=== PATIENT | female | born 1960 | race Two or more races ===

== ENCOUNTER → 2018-03-03 | Outpatient (CLI) | payer SELFPAY ==
--- NOTE | 2018-03-03 10:12 | MM ---
Reason for exam: screening (asymptomatic). Last mammogram was performed 4 years and 1 month ago. History: Patient is postmenopausal. Family history of premenopausal breast cancer in mother. Physical Findings: A clinical breast exam by your physician is recommended on an annual basis and results should be correlated with mammographic findings. MG Screening Mammo w CAD Bilateral CC and MLO view(s) were taken. Prior study comparison: January 24, 2014, bilateral MG screening mammo w CAD. November 06, 2012, bilateral digital screening mammo w/CAD. The breast tissue is heterogeneously dense. This may lower the sensitivity of mammography. Benign calcifications in the left breast. There is chronic nodularity in the left breast. ASSESSMENT: Benign, BI-RAD 2 RECOMMENDATION: Routine screening mammogram of both breasts in 1 year.
== END | disposition home or self-care (01) ==
LOC: RADMAMWWP 07:05
PROVIDERS: ATTEND Internal Medicine
DX: Z12.31 Encounter for screening mammogram for malignant neoplasm of breast (principal)
CPT/HCPCS: 77067

== ENCOUNTER 2021-06-07 11:15 | Inpatient (IN) | payer OTHER ==
[2021-06-07] MEDS ORDERED: SODIUM CHLORIDE 0.9% 500 ML 500 ML IV STA (11:45)
--- NOTE | 2021-06-07 11:48 | ED ---
General Adult HPI - General Chief complaint: Chest Pain Stated complaint: Chest pain/SOB Time Seen by Provider: 06/07/21 11:32 Source: patient, RN notes reviewed, old records reviewed Mode of arrival: ambulatory Limitations: language barrier - History of Present Illness Initial comments: 61-year-old female presenting with cough, dyspnea, chest pain. History is obtained from the daughter who is at bedside. The patient does not speak Indonesian. She has not been vaccinated against coronavirus. She's had a nonproductive cough for the past several days. No vomiting or diarrhea. History is limited. - Related Data Allergies Allergy/AdvReac Type Severity Reaction Status Date / Time No Known Allergies Allergy Verified 06/07/21 11:30 Review of Systems ROS Statement: Those systems with pertinent positive or pertinent negative responses have been documented in the HPI. ROS Other: All systems not noted in ROS Statement are negative. Past Medical History Past Medical History: Diabetes Mellitus, Hyperlipidemia History of Any Multi-Drug Resistant Organisms: None Reported Past Surgical History: Tubal Ligation Past Psychological History: No Psychological Hx Reported Smoking Status: Never smoker Past Alcohol Use History: None Reported Past Drug Use History: None Reported General Exam Limitations: no limitations General appearance: alert, in no apparent distress Head exam: Present: atraumatic, normocephalic Eye exam: Present: normal appearance, PERRL ENT exam: Present: normal exam Neck exam: Present: normal inspection. Absent: tenderness, meningismus Respiratory exam: Present: rales. Absent: respiratory distress, wheezes Cardiovascular Exam: Present: regular rate, normal rhythm GI/Abdominal exam: Present: soft. Absent: distended, tenderness, guarding, rebound Extremities exam: Present: normal inspection, normal capillary refill. Absent: pedal edema Neurological exam: Present: alert, oriented X3, CN II-XII intact. Absent: motor sensory deficit Psychiatric exam: Present: normal affect, normal mood Skin exam: Present: warm, dry, intact. Absent: cyanosis, diaphoretic Course Vital Signs 06/07/21 06/07/21 06/07/21 11:24 12:44 12:47 Temperature 99.0 F Pulse Rate 113 H 102 H Respiratory 19 24 18 Rate Blood Pressure 126/78 124/69 O2 Sat by Pulse 86 L 93 L Oximetry - Reevaluation(s) Reevaluation #1: 06/07/21 13:40 Patient does test positive for coronavirus. Very mild respiratory distress. She is given monoclonal antibodies as well as steroids in the emergency depart ment. EKG Findings - EKG Comments: EKG Findings:: Sinus tachycardia, rate of 107, OR interval 122, QRS duration 82, QTC 488, no ST segment elevation. Medical Decision Making - Medical Decision Making 61-year-old female with a burning chest pain. Patient does not speak Indonesian, h istory is obtained from the daughter who is at bedside. Patient is mildly hypoxic upon arrival. She does test positive for coronavirus. Chest x-ray showing minimal bilateral pneumonia. She has a leukocytosis, elevated hemoglobin, negative d-dimer. Blood sugar is elevated 359. She started on IV fluids. She's given Decadron as well. Her blood sugar will require monitoring. She will be placed in observation for hydration and reevaluation. Case discussed with Dr. Miller who will admit. - Lab Data Result diagrams: 06/07/21 12:08 06/07/21 12:08 Lab Results 06/07/21 06/07/21 06/07/21 Range/Units 12:08 12:08 12:08 WBC 16.4 H (3.8-10.6) k/uL RBC 5.82 H (3.80-5.40) m/uL Hgb 16.8 H (11.4-16.0) gm/dL Hct 51.7 H (34.0-46.0) % MCV 88.8 (80.0-100.0) fL MCH 28.9 (25.0-35.0) pg MCHC 32.6 (31.0-37.0) g/dL RDW 13.1 (11.5-15.5) % Plt Count 383 (150-450) k/uL MPV 8.1 Neutrophils % 88 % Lymphocytes % 7 % Monocytes % 4 % Eosinophils % 0 % Basophils % 0 % Neutrophils # 14.5 H (1.3-7.7) k/uL Lymphocytes # 1.1 (1.0-4.8) k/uL Monocytes # 0.6 (0-1.0) k/uL Eosinophils # 0.0 (0-0.7) k/uL Basophils # 0.1 (0-0.2) k/uL PT 10.9 (9.0-12.0) sec INR 1.0 (<1.2) APTT 19.7 L (22.0-30.0) sec D-Dimer 0.42 (<0.60) mg/L FEU Sodium 134 L (137-145) mmol/L Potassium 4.6 (3.5-5.1) mmol/L Chloride 98 (98-107) mmol/L Carbon Dioxide 13 L (22-30) mmol/L Anion Gap 23 mmol/L BUN 32 H (7-17) mg/dL Creatinine 0.70 (0.52-1.04) mg/dL Est GFR (CKD-EPI)AfAm >90 (>60 ml/min/1.73 sqM) Est GFR (CKD-EPI)NonAf >90 (>60 ml/min/1.73 sqM) Glucose 359 H (74-99) mg/dL Calcium 10.3 H (8.4-10.2) mg/dL Magnesium 2.0 (1.6-2.3) mg/dL Total Bilirubin 0.8 (0.2-1.3) mg/dL AST 18 (14-36) U/L ALT 13 (4-34) U/L Alkaline Phosphatase 85 (38-126) U/L Troponin I (0.000-0.034) ng/mL Total Protein 7.6 (6.3-8.2) g/dL Albumin 4.1 (3.5-5.0) g/dL Lipase 56 (23-300) U/L Coronavirus (PCR) (Not Detectd) 06/07/21 06/07/21 Range/Units 12:08 12:08 WBC (3.8-10.6) k/uL RBC (3.80-5.40) m/uL Hgb (11.4-16.0) gm/dL Hct (34.0-46.0) % MCV (80.0-100.0) fL MCH (25.0-35.0) pg MCHC (31.0-37.0) g/dL RDW (11.5-15.5) % Plt Count (150-450) k/uL MPV Neutrophils % % Lymphocytes % % Monocytes % % Eosinophils % % Basophils % % Neutrophils # (1.3-7.7) k/uL Lymphocytes # (1.0-4.8) k/uL Monocytes # (0-1.0) k/uL Eosinophils # (0-0.7) k/uL Basophils # (0-0.2) k/uL PT (9.0-12.0) sec INR (<1.2) APTT (22.0-30.0) sec D-Dimer (<0.60) mg/L FEU Sodium (137-145) mmol/L Potassium (3.5-5.1) mmol/L Chloride (98-107) mmol/L Carbon Dioxide (22-30) mmol/L Anion Gap mmol/L BUN (7-17) mg/dL Creatinine (0.52-1.04) mg/dL Est GFR (CKD-EPI)AfAm (>60 ml/min/1.73 sqM) Est GFR (CKD-EPI)NonAf (>60 ml/min/1.73 sqM) Glucose (74-99) mg/dL Calcium (8.4-10.2) mg/dL Magnesium (1.6-2.3) mg/dL Total Bilirubin (0.2-1.3) mg/dL AST (14-36) U/L ALT (4-34) U/L Alkaline Phosphatase (38-126) U/L Troponin I <0.012 (0.000-0.034) ng/mL Total Protein (6.3-8.2) g/dL Albumin (3.5-5.0) g/dL Lipase (23-300) U/L Coronavirus (PCR) Detected A (Not Detectd) Disposition Clinical Impression: Chest pain, Dehydration, COVID-19 Disposition: ADMITTED IP TO THIS [facility] Condition: Stable Is patient prescribed a controlled substance at d/c from ED?: No Referrals: Natasha Back MD [Primary Care Provider] - 1-2 days Decision to Admit Reason: Admit from EC Decision Date: 06/07/21 Decision Time: 13:42
[2021-06-07 12:25] LABS: Basophils # (A) 0.1 k/uL (0-0.2); Basophils % (A) 0 %; Eosinophils % (A) 0 %; HCT 51.7 % (34.0-46.0); HGB 16.8 gm/dL (11.4-16.0); Lymphocytes # (A) 1.1 k/uL (1.0-4.8); Lymphocytes % (A) 7 %; MCH 28.9 pg (25.0-35.0); MCHC 32.6 g/dL (31.0-37.0); MCV 88.8 fL (80.0-100.0); Mean Platelet Volume 8.1; Monocytes # (A) 0.6 k/uL (0-1.0); Monocytes % (A) 4 %; Neutrophils # (A) 14.5 k/uL (1.3-7.7); Neutrophils % (A) 88 %; Platelet Count 383 k/uL (150-450); RBC 5.82 m/uL (3.80-5.40); RDW 13.1 % (11.5-15.5); WBC 16.4 k/uL (3.8-10.6)
--- NOTE | 2021-06-07 12:42 | XR ---
EXAMINATION TYPE: XR chest 1V portable DATE OF EXAM: 06/07/2021 COMPARISON: NONE HISTORY: Shortness of breath TECHNIQUE: Single frontal view of the chest is obtained. FINDINGS: There are perihilar and lower lobe areas of infiltrate. Heart size normal. No pneumothorax . Tiny bilateral pleural effusions. Atherosclerotic change aorta. Limited inspiration. IMPRESSION: Bilateral areas of infiltrate correlate for pneumonia.
[2021-06-07] MEDS ORDERED: HYDROmorphone 0.5 MG/0.5 ML SYRINGE IVP STA (12:46)
[2021-06-07 12:49] LABS: Prothrombin Time 10.9 sec (9.0-12.0)
[2021-06-07 12:51] LABS: Sodium 134 mmol/L (137-145)
[2021-06-07 12:52] LABS: ALT 13 U/L (4-34); AST 18 U/L (14-36); African American GFR (CKD) >90 (>60 ml/min/1.73 sqM); Albumin 4.1 g/dL (3.5-5.0); Alkaline Phosphatase 85 U/L (38-126); Anion Gap 23 mmol/L; Blood Urea Nitrogen 32 mg/dL (7-17); Calcium 10.3 mg/dL (8.4-10.2); Carbon Dioxide 13 mmol/L (22-30); Chloride 98 mmol/L (98-107); Glucose 359 mg/dL (74-99); Lipase 56 U/L (23-300); Non-African American GFR(CKD) >90 (>60 ml/min/1.73 sqM); Potassium 4.6 mmol/L (3.5-5.1); Total Bilirubin 0.8 mg/dL (0.2-1.3); Total Protein 7.6 g/dL (6.3-8.2)
[2021-06-07] MEDS ORDERED: DEXAMETHASONE SOD PHOSPHATE 10 MG/ML 1 ML VIAL IV STA (12:52)
[2021-06-07 13:07] LABS: Partial Thromboplastin Time 19.7 sec (22.0-30.0)
[2021-06-07] MEDS ORDERED: SODIUM CHLORIDE 0.9% 50 ML IVPB ONE (13:30)
[2021-06-07] MEDS ORDERED: BAMLANIVIMAB (EUA) 700 MG, ETESEVIMAB (EUA) 1,400 MG in SODIUM CHLORIDE 0.9% 50 ML IVPB ONE (13:30)
[2021-06-07] MEDS ORDERED: ACETAMINOPHEN TAB 325 MG TAB PO PRN (13:38)
[2021-06-07] MEDS ORDERED: NALOXONE 0.4 MG/ML 1 ML VIAL IV PRN (13:38)
[2021-06-07] MEDS ORDERED: HYDROmorphone 0.5 MG/0.5 ML SYRINGE IVP PRN (13:38)
[2021-06-07] MEDS: SODIUM CHLORIDE 0.9% 1,000 ML IV SCH ×2 (13:41→21:14)
[2021-06-07] MEDS ORDERED: SODIUM CHLORIDE 0.9% 500 ML 500 ML IV ONE (13:42)
--- NOTE | 2021-06-07 17:04 | CT ---
EXAMINATION TYPE: CT chest wo con DATE OF EXAM: 06/07/2021 COMPARISON: Chest x-ray earlier today. HISTORY: Suspect covid pneumonia. Shortness of breath, cough. CT DLP: 299.5 mGycm. Automated Exposure Control for Dose Reduction was Utilized. TECHNIQUE: CT scan of the thorax is performed without IV contrast. FINDINGS: LUNGS: Confirmation of bilateral multifocal predominantly peripheral groundglass opacities. Dependent atelectasis in the lower lungs with areas of organizing consolidation. No pleural effusion or pneumo thorax seen. MEDIASTINUM: Lack of IV contrast is noted to limit evaluation for mediastinal and especially hilar ad enopathy. There are no definitive greater than 1 cm mediastinal lymph nodes. No cardiomegaly or per icardial effusion is seen. Small size hiatal hernia. OTHER: No additional significant abnormality is seen. IMPRESSION: Bilateral multifocal groundglass opacities and organizing consolidation consistent with c ovid-19 infection are confirmed.
--- NOTE | 2021-06-07 17:06 | HP ---
HISTORY AND PHYSICAL DATE OF SERVICE: 06/07/2021 CHIEF COMPLAINT: Chest pain and shortness of breath. HISTORY OF PRESENT ILLNESS: This 61-year-old woman with a past medical history of multiple medical problems, including diabetes, hypertension, being followed Dr. Back in the outpatient setting was complaining of some cough, shortness of breath and chest pain for the last 4 days. The patient has not vaccinated and because of increasing difficulties, the patient came to [facility] and was admitted for further evaluation and treatment. The pulse ox found to be 90% on room air and the patient was slight tachycardic. Lab evaluation showed elevated WBC, normal D-dimer, and calcium was 10.3, and Covid 19 was negative. The patient's chest x-ray which I reviewed personally showed possibly minimal early infiltrate. The patient admitted for further evaluation and treatment. There is no history of fever, rigors, chills at this time. The initial pulse ox 86 percent on room air. PAST MEDICAL HISTORY: History of diabetes, hyperlipidemia. MEDICATIONS: Medications are Tylenol, Dilaudid, Narcan. ALLERGIES: None. FAMILY HISTORY: No history of heart disease or strokes in the family. SOCIAL HISTORY: No history of smoking. No history of alcohol intake. REVIEW OF SYSTEMS: ENT: No diminished vision. No diminished hearing. CARDIOVASCULAR as mentioned earlier. RESPIRATORY: As mentioned earlier. GI no nausea or vomiting. : No dysuria. NERVOUS SYSTEM: No numbness or weakness. ALLERGY/IMMUNOLOGY: No asthma or hayfever. MUSCULOSKELETAL: As mentioned earlier. HEMATOLOGY/ONCOLOGY: No history of any anemia. ENDOCRINE: As mentioned earlier. CONSTITUTIONAL: As mentioned earlier. DERMATOLOGY: Negative. RHEUMATOLOGY: Negative. PSYCHIATRIC: As mentioned earlier. PHYSICAL EXAMINATION: Patient is alert, oriented x3. The pulse is 105. Blood pressure is 118/62. Respiration 19. Temperature 99 degrees, pulse ox 98% on room air. HEENT: Conjunctivae normal. Oral mucosa moist. NECK is no jugular venous distention. No carotid bruit. No lymph node enlargement. CARDIOVASCULAR: S1, S2. RESPIRATORY: Breath sounds diminished in the bases. A few scattered rhonchi. ABDOMEN: Soft. No mass palpable. LEGS are no edema. No swelling. NERVOUS SYSTEM: Higher function as mentioned earlier. Moves all 4 limbs. No focal motor or sensory deficits. LYMPHATICS: No lymph nodes palpable in the neck, axillae or groin. SKIN: No ulcer, no rash and no bleeding. JOINTS: No active deforming arthropathy. LAB STUDIES: WBC 16.1, hemoglobin 16.8, sodium 134. ASSESSMENT: 1. Acute Covid 19 infection with acute early bilateral interstitial pneumonia with acute hypoxic respiratory failure. 2. Chest pain for evaluation. Rule out unstable angina, coronary artery disease all secondary to Covid 19. 3. Increased WBC. 4. Increased hemoglobin. 5. Hyponatremia. 6. Diabetes mellitus type 2, uncontrolled with hyperglycemia. 7. History of diabetes type 2. 8. Hyperlipidemia. 9. History of tubal ligation. 10.Obesity with body mass of 31.9. 11.FULL CODE. RECOMMENDATION: This 61-year-old woman who presented with multiple complex medical issues, we will monitor the patient closely, continue the current medications, management and symptomatic treatment. I recommend CT chest without any contrast. The D-dimer is negative. Otherwise, I would also recommend infectious disease evaluation. Pulmonary evaluation. Possible Remdesivir. BAM may also be considered in this patient. The patient is hypoxic apparently. I would also recommend serum ketone to rule out possible diabetic ketoacidosis, UA with micro, serum procalcitonin. Prognosis guarded because of multiple complex medical issues. Further recommendations to follow. A copy of dictation being forwarded to Dr. Back who is the primary care physician. See orders for details. If the blood sugar is elevated, we will initiate IV insulin drip for better control. MMODL / IJN: [id number] / MTDD
[2021-06-07] MEDS: INSULIN ASPART (NovoLOG) 100 UNIT/ML VIAL SQ SCH (17:32)
[2021-06-07] MEDS: ZINC SULFATE 220 MG CAP PO SCH (17:32)
[2021-06-07] MEDS: ENOXAPARIN 40 MG/0.4 ML SYRINGE SQ SCH (17:32)
--- NOTE | 2021-06-07 17:38 | ECHOF ---
Referral Reason:chest pain MEASUREMENTS -------- HEIGHT: 160.0 cm WEIGHT: 81.6 kg BP: 108/72 RVIDd: 2.9 cm (< 3.3) IVSd: 1.2 cm (0.6 - 1.1) LVIDd: 4.0 cm (3.9 - 5.3) LVPWd: 1.1 cm (0.6 - 1.1) IVSs: 1.5 cm LVIDs: 2.4 cm LVPWs: 1.7 cm LA Diam: 3.5 cm (2.7 - 3.8) Ao Diam: 2.9 cm (2.0 - 3.7) AV Cusp: 2.1 cm (1.5 - 2.6) MV EXCURSION: 14.865 mm (> 18.000) MV EF SLOPE: 26 mm/s (70 - 150) EPSS: 0.6 cm MV E Ezekiel: 0.73 m/s MV DecT: 256 ms MV A Ezekiel: 0.92 m/s MV E/A Ratio: 0.80 RAP: 5.00 mmHg RVSP: 16.47 mmHg FINDINGS -------- Sinus rhythm. This was a technically adequate study. The left ventricular size is normal. There is borderline concentric left ventricular hypertrophy. Overall left ventricular systolic function is normal with, an EF between 60 - 65 %. The right ventricle is normal in size. The left atrium is normal in size. The right atrium is normal in size. The aortic valve is trileaflet, and appears structurally normal. No aortic stenosis or regurgitation. There is trace mitral regurgitation. Mild tricuspid regurgitation present. Right ventricular systolic pressure is normal at < 35 mmHg. There is no pulmonic regurgitation present. The aortic root size is normal. Normal inferior vena cava with normal inspiratory collapse consistent with estimated right atrial pre ssure of 5 mmHg. There is no pericardial effusion. CONCLUSIONS -------- 1. The left ventricular size is normal. 2. There is borderline concentric left ventricular hypertrophy. 3. Overall left ventricular systolic function is normal with, an EF between 60 - 65 %. 4. The aortic valve is trileaflet, and appears structurally normal. No aortic stenosis or regurgitati on. 5. There is trace mitral regurgitation. 6. Mild tricuspid regurgitation present. 7. There is no pericardial effusion. FAMILY SERVICES MANAGER: LISSETT Smith
[2021-06-07 18:11] LABS: C Reactive Protein 2.5 mg/dL (<1.0); LDH 547 U/L (313-618)
[2021-06-07 18:45] LABS: Glucose,Whole Blood 438 mg/dL (75-99)
[2021-06-07] MEDS ORDERED: INSULIN REGULAR BOLUS (FROM DRIP BAG) IV ONE (19:06)
[2021-06-07] MEDS: INSULIN REGULAR 100 UNIT in SODIUM CHLORIDE 0.9% 100 ML IV SCH (19:38)
[2021-06-07 20:44] LABS: Glucose,Whole Blood 402 mg/dL (75-99)
[2021-06-07 21:13] LABS: Glucose,Whole Blood 326 mg/dL (75-99)
[2021-06-07 22:04] LABS: Glucose,Whole Blood 262 mg/dL (75-99)
[2021-06-07 22:39] LABS: Glucose,Whole Blood 217 mg/dL (75-99)
[2021-06-08 00:45] LABS: Glucose,Whole Blood 175 mg/dL (75-99)
[2021-06-08 03:00] LABS: Glucose,Whole Blood 167 mg/dL (75-99)
[2021-06-08 03:23] LABS: Appearance,Urine Clear (Clear); Bilirubin,Urine Negative (Negative); Blood,Urine Negative (Negative); Color,Urine Yellow; Glucose,Urine (UA) 4+ (Negative); Leukocyte Esterase,Urine Trace (Negative); Nitrite,Urine Negative (Negative); PH, Urine 5.5 (5.0-8.0); Protein,Urine Trace (Negative); RBC,Urine 1 /hpf (0-5); Specific Gravity,Urine 1.035 (1.001-1.035); Squamous Epithelial Cell,Urine 5 /hpf (0-4); Urobilinogen,Urine <2.0 mg/dL (<2.0); WBC,Urine 7 /hpf (0-5)
[2021-06-08 03:26] LABS: Ketones,Urine 4+ (Negative)
[2021-06-08 04:51] LABS: Glucose,Whole Blood 167 mg/dL (75-99)
[2021-06-08 06:22] LABS: Basophils % (A) 0 %; Eosinophils % (A) 0 %; HCT 44.9 % (34.0-46.0); HGB 14.6 gm/dL (11.4-16.0); Lymphocytes # (A) 1.1 k/uL (1.0-4.8); Lymphocytes % (A) 9 %; MCH 28.8 pg (25.0-35.0); MCHC 32.5 g/dL (31.0-37.0); MCV 88.9 fL (80.0-100.0); Monocytes # (A) 0.5 k/uL (0-1.0); Monocytes % (A) 4 %; Neutrophils # (A) 10.7 k/uL (1.3-7.7); Neutrophils % (A) 86 %; Platelet Count 357 k/uL (150-450); RBC 5.05 m/uL (3.80-5.40); WBC 12.4 k/uL (3.8-10.6)
[2021-06-08 06:32] LABS: ALT 10 U/L (4-34); AST 15 U/L (14-36); African American GFR (CKD) >90 (>60 ml/min/1.73 sqM); Albumin 3.1 g/dL (3.5-5.0); Alkaline Phosphatase 53 U/L (38-126); Anion Gap 6 mmol/L; Blood Urea Nitrogen 25 mg/dL (7-17); Calcium 9.2 mg/dL (8.4-10.2); Carbon Dioxide 25 mmol/L (22-30); Chloride 105 mmol/L (98-107); Glucose 170 mg/dL (74-99); Non-African American GFR(CKD) >90 (>60 ml/min/1.73 sqM); Potassium 4.7 mmol/L (3.5-5.1); Sodium 136 mmol/L (137-145); Total Bilirubin 0.6 mg/dL (0.2-1.3); Total Protein 6.3 g/dL (6.3-8.2)
[2021-06-08 06:34] LABS: Glucose,Whole Blood 157 mg/dL (75-99)
[2021-06-08] MEDS ORDERED: INSULIN ASPART (NovoLOG) 100 UNIT/ML VIAL SQ SCH (07:30)
[2021-06-08] MEDS: INSULIN ASPART (NovoLOG) 100 UNIT/ML VIAL SQ SCH ×3 (07:55→18:20)
[2021-06-08 08:45] LABS: Glucose,Whole Blood 142 mg/dL (75-99)
[2021-06-08] MEDS: ASCORBIC ACID 500 MG TAB PO SCH (08:55)
[2021-06-08] MEDS: CHOLECALCIFEROL 25 MCG (1000 IU) TABLET PO SCH (08:55)
[2021-06-08] MEDS: ENOXAPARIN 40 MG/0.4 ML SYRINGE SQ SCH (08:55)
[2021-06-08] MEDS: ZINC SULFATE 220 MG CAP PO SCH (08:55)
[2021-06-08] MEDS: DEXAMETHASONE SOD PHOSPHATE 10 MG/ML 1 ML VIAL IV SCH (08:56)
[2021-06-08] MEDS: INSULIN REGULAR 100 UNIT in SODIUM CHLORIDE 0.9% 100 ML IV SCH (08:56)
[2021-06-08] MEDS: SODIUM CHLORIDE 0.9% 1,000 ML IV SCH (08:56)
--- NOTE | 2021-06-08 09:30 | P.CONS ---
History of Present Illness - Reason for Consult Consult date: 06/07/21 covid 19 pneumonia Requesting physician: Kandis Miller - Chief Complaint shortness of breath x 4 days - History of Present Illness History of present illness : Patient is 61-year-old female presenting to the ER today for evaluation of cough shortness of breath and chest pain in this patient who is not vaccinated against COVID-19 and the patient did have a nonproductive cough for several days as per ER report daughter is mentioning about 4 days patient on presented to the hospital did have low-grade fever of 99 F patient was hypoxic with O2 sats sats of 86% on room air patient did have elevated white count with a left shift no lymphopenia D-dimer was negative creatinine was normal liver enzymes are normal (normal urine is negative patient did have a chest x-ray bilateral areas of infiltrate correlate for pneumonia given the patient was hypoxic and has abnormal x-ray she was given a monoclonal antibodies in the ER subsequently the patient has been admitted to hospital infectious disease was consulted for further management most information has been obtained from review of the chart and talking to the daughter as the patient herself cannot speak Albanian Review of system: CONSTITUTIONAL: Positive for weakness along with the fever. EYES: No complaint. ENT: No complaint. RESPIRATORY: As per history of present illness. CARDIOVASCULAR: No complaint. GENITOURINARY: No complaint. GASTROINTESTINAL: Diarrhea. MUSCULOSKELETAL: No complaint. INTEGUMENTARY: No complaint. PSYCHOLOGIC: No complaint. ENDOCRINE: No complaint. NEUROLOGIC: No complaint. Past medical history : Reviewed, documented below Past surgical history : Reviewed, documented below Social history: Reviewed, documented below Medications: Reviewed, as documented below EXAMINATION: Vital sigans= Reviewed and documented below GENERAL DESCRIPTION: Middle-aged male lying in bed, no distress. No tachypnea or accessory muscle of respiration use. HEENT: Shows Pallor , no scleral icterus. Oral mucous membrane is dry. NECK: Trachea central, no thyromegaly. LUNGS: Unlabored breathing. Coarse breath sounds bilaterally. No wheeze or crackle. HEART: S1, S2, regular rate and rhythm. ABDOMEN: Soft, no tenderness , guarding or rigidity EXTREMITIES: No edema of feet. SKIN: No rash, no masses palpable. NEUROLOGICAL: The patient is awake, alert, oriented x3, mood and affect normal. LABS AND RADIOLOGY: Reviewed results see below Assessment : Patient presenting to the hospital with chest pain shortness of breath in this patient with evidence of multifocal infiltrate secondary to COV ID-19 pneumonia and hypoxemia and this patient has received a monoclonal antibodies in the ER and seem to be off the oxygen at this point however the patient is currently within the 7-day window of remdesivir as per discussion with the daughter and may be candidate for it clinically no evidence of any secondary bacterial pneumonia Plan: 1-patient will be started on remdesivir 5-day protocol 2-dexamethasone Lovenox zinc and ascorbic acid 3-droplet isolation and respiratory support We will follow on clinical condition and cultures to further adjust medication if needed Thank you for this consultation we will follow the patient along with you Past Medical History Past Medical History: Diabetes Mellitus, Hyperlipidemia History of Any Multi-Drug Resistant Organisms: None Reported Past Surgical History: Tubal Ligation Past Psychological History: No Psychological Hx Reported Smoking Status: Never smoker Past Alcohol Use History: None Reported Past Drug Use History: None Reported Medications and Allergies Home Medications Medication Instructions Recorded Confirmed Type metFORMIN HCL 500 mg PO DAILY 06/07/21 06/07/21 History Allergies Allergy/AdvReac Type Severity Reaction Status Date / Time No Known Allergies Allergy Verified 06/07/21 14:07 Physical Exam Vitals: Vital Signs Temp Pulse Resp BP Pulse Ox 06/07/21 15:36 98 F 99 16 108/72 95 06/07/21 13:50 105 H 19 118/62 90 L 06/07/21 12:47 18 06/07/21 12:44 102 H 24 124/69 93 L 06/07/21 11:24 99.0 F 113 H 19 126/78 86 L Intake and Output 06/07/21 06/07/21 06/07/21 06:59 14:59 22:59 Other: Weight 81.647 kg Results CBC & Chem 7: 06/08/21 05:27 06/08/21 05:27 Labs: Abnormal Lab Results - Last 24 Hours (Table) 06/07/21 06/07/21 06/07/21 Range/Units 12:08 12:08 12:08 WBC 16.4 H (3.8-10.6) k/uL RBC 5.82 H (3.80-5.40) m/uL Hgb 16.8 H (11.4-16.0) gm/dL Hct 51.7 H (34.0-46.0) % Neutrophils # 14.5 H (1.3-7.7) k/uL APTT 19.7 L (22.0-30.0) sec Sodium 134 L (137-145) mmol/L Carbon Dioxide 13 L (22-30) mmol/L BUN 32 H (7-17) mg/dL Glucose 359 H (74-99) mg/dL Calcium 10.3 H (8.4-10.2) mg/dL Coronavirus (PCR) (Not Detectd) 06/07/21 Range/Units 12:08 WBC (3.8-10.6) k/uL RBC (3.80-5.40) m/uL Hgb (11.4-16.0) gm/dL Hct (34.0-46.0) % Neutrophils # (1.3-7.7) k/uL APTT (22.0-30.0) sec Sodium (137-145) mmol/L Carbon Dioxide (22-30) mmol/L BUN (7-17) mg/dL Glucose (74-99) mg/dL Calcium (8.4-10.2) mg/dL Coronavirus (PCR) Detected A (Not Detectd)
--- NOTE | 2021-06-08 09:46 | P.CRDCN ---
History of Present Illness Consult date: 06/08/21 Requesting physician: Kandis Miller Reason for Consult (text): chest pain Chief complaint: Weakness, cough, shortness of breath, chest pain History of present illness: This a pleasant 61-year-old British-speaking female patient with history of hyperlipidemia and diabetes. She speaks very little Ukrainian and most information was obtained from family at the bedside. Presented to the emergency department with complaints of weakness, cough, shortness of breath and burning chest discomfort mostly with deep breathing and coughing. Her has been diagnosed earlier in the week with COVID. Specifically the patient in consultation for chest pain. On admission Coronavirus PCR was noted to be positive. Troponin was negative 1. Blood cell count was elevated at 16,400, d-dimer was normal, BUN 32, creatinine 0.70, glucose is elevated at 359, C- reactive protein elevated at 2.5. Chest x-ray on admission showed bilateral areas of infiltrate correlated for pneumonia. EKG showed sinus tachycardia with a heart rate of 107 and no evidence of acute ischemia. A cardiogram with Doppler study show normal LV systolic function with an ejection fraction between 60-65%, no significant valvular abnormalities and no segmental wall motion abnormalities. Computed tomography scan of the chest showed bilateral multifocal groundglass opacities and organizing consolidation consistent with COVID-19 infection confirmed. Being followed by infectious disease and started on Remdesivir, dexamethasone, Lovenox, zinc, vitamin C. Vital signs have been stable. She is currently requiring 2 L nasal cannula with oxygen saturation of 92-96%. On examination patient is sitting up beside the bed. Continues to complain of chest discomfort with coughing and deep inspiration. Past Medical History Past Medical History: Diabetes Mellitus, Hyperlipidemia History of Any Multi-Drug Resistant Organisms: None Reported Past Surgical History: Tubal Ligation Past Anesthesia/Blood Transfusion Reactions: No Reported Reaction Past Psychological History: No Psychological Hx Reported Smoking Status: Never smoker Past Alcohol Use History: None Reported Past Drug Use History: None Reported Medications and Allergies Home Medications Medication Instructions Recorded Confirmed Type metFORMIN HCL 500 mg PO DAILY 06/07/21 06/07/21 History Allergies Allergy/AdvReac Type Severity Reaction Status Date / Time No Known Allergies Allergy Verified 06/07/21 14:07 Physical Exam Vitals: Vital Signs Temp Pulse Pulse Resp BP BP Pulse Ox 06/08/21 04:00 98.9 F 74 18 108/62 96 06/08/21 02:00 96 18 06/08/21 00:00 99.0 F 96 18 116/59 92 L 06/07/21 20:00 98.4 F 104 H 18 119/69 92 L 06/07/21 18:16 97.9 F 101 H 18 117/65 92 L 06/07/21 17:37 98.9 F 78 20 100/73 94 L 06/07/21 15:36 98 F 99 16 108/72 95 06/07/21 13:50 105 H 19 118/62 90 L 06/07/21 12:47 18 06/07/21 12:44 102 H 24 124/69 93 L 06/07/21 11:24 99.0 F 113 H 19 126/78 86 L Intake and Output 06/07/21 06/08/21 06/08/21 22:59 06:59 14:59 Intake Total 67.700 8.867 20.125 Output Total 400 Balance 67.700 -391.133 20.125 Intake: Intake, IV Titration 67.700 8.867 20.125 Amount Insulin Regular 100 unit 67.700 8.867 20.125 In Sodium Chloride 0.9% 100 ml @ Titrate IV .Q0M [facility] Rx#:[id number] Output: Urine 400 Other: # Voids 1 Weight 81.647 kg 71.5 kg PHYSICAL EXAMINATION: This is a 61-year-old female in no apparent distress at the time of my examination. VITAL SIGNS: Blood pressure 108/62, heart rate 74, respirations 18, temp 98.9F. Patient is 96 % on 2 L via nasal cannula. HEENT: Head is atraumatic, normocephalic. Pupils are equal, round. Sclerae anicteric. Conjunctivae are clear. Mucous membranes of the mouth are moist. Neck is supple. There is no elevated jugular venous pressure. No carotid bruit is heard. CHEST EXAMINATION: Lungs reveal diminished air entry bilaterally. No wheezes rales or rhonchi. Respirations even and nonlabored. HEART EXAMINATION: Heart regular, positive S1 and S2. No S3. No S4. No clicks, rubs or murmurs. ABDOMEN: Soft, nontender. Bowel sounds are heard. No organomegaly noted. EXTREMITIES: 2+ peripheral pulses with no evidence of peripheral edema and no calf tenderness noted. NEUROLOGIC EXAMINATION: Patient is awake, alert and oriented x3. Results 06/08/21 05:27 06/08/21 05:27 Cardiac Enzymes 06/07/21 06/07/21 06/07/21 Range/Units 12:06 12:08 12:08 AST 18 (14-36) U/L Lactate Dehydrogenase 547 (313-618) U/L Troponin I <0.012 (0.000-0.034) ng/mL 06/08/21 Range/Units 05:27 AST 15 (14-36) U/L Lactate Dehydrogenase (313-618) U/L Troponin I (0.000-0.034) ng/mL Coagulation 06/07/21 Range/Units 12:08 PT 10.9 (9.0-12.0) sec APTT 19.7 L (22.0-30.0) sec CBC 06/07/21 06/08/21 Range/Units 12:08 05:27 WBC 16.4 H 12.4 H (3.8-10.6) k/uL RBC 5.82 H 5.05 (3.80-5.40) m/uL Hgb 16.8 H 14.6 (11.4-16.0) gm/dL Hct 51.7 H 44.9 (34.0-46.0) % Plt Count 383 357 (150-450) k/uL Comprehensive Metabolic Panel 06/07/21 06/08/21 Range/Units 12:08 05:27 Sodium 134 L 136 L (137-145) mmol/L Potassium 4.6 4.7 (3.5-5.1) mmol/L Chloride 98 105 (98-107) mmol/L Carbon Dioxide 13 L 25 (22-30) mmol/L BUN 32 H 25 H (7-17) mg/dL Creatinine 0.70 0.53 (0.52-1.04) mg/dL Glucose 359 H 170 H (74-99) mg/dL Calcium 10.3 H 9.2 (8.4-10.2) mg/dL AST 18 15 (14-36) U/L ALT 13 10 (4-34) U/L Alkaline Phosphatase 85 53 (38-126) U/L Total Protein 7.6 6.3 (6.3-8.2) g/dL Albumin 4.1 3.1 L (3.5-5.0) g/dL Current Medications Generic Name Dose Route Start Last Admin Trade Name Freq PRN Reason Stop Dose Admin Acetaminophen 650 mg 06/07/21 13:38 Acetaminophen Tab 325 Mg Tab PO Q6HR PRN Mild Pain or Fever > 100.5 Ascorbic Acid 500 mg 06/08/21 09:00 06/08/21 08:55 Ascorbic Acid 500 Mg Tab PO 500 mg DAILY [facility] Administration Cholecalciferol 25 mcg 06/08/21 09:00 06/08/21 08:55 Cholecalciferol 25 Mcg (1000 Iu) Tablet PO 25 mcg DAILY [facility] Administration Dexamethasone Sodium Phosphate 6 mg 06/08/21 09:00 06/08/21 08:56 Dexamethasone Sod Phosphate 10 Mg/Ml 1 Ml Vial IV 06/17/21 09:01 6 mg DAILY [facility] Administration Enoxaparin Sodium 40 mg 06/07/21 16:15 06/08/21 08:55 Enoxaparin 40 Mg/0.4 Ml Syringe SQ 40 mg Q24HR [facility] Administration Hydromorphone HCl 0.5 mg 06/07/21 13:38 06/08/21 03:32 Hydromorphone 0.5 Mg/0.5 Ml Syringe IVP 0.5 mg Q3HR PRN Administration Moderate Pain Sodium Chloride 1,000 mls @ 75 mls/hr 06/07/21 13:30 06/08/21 08:56 Saline 0.9% IV 75 mls/hr .[id number] [facility] Administration Insulin Human Regular 100 unit 101 mls @ 0 mls/hr 06/07/21 19:15 06/08/21 08:56 / Sodium Chloride IV 2 mls/hr .Q0M [facility] 2 mls/hr Administration Protocol Titrate Insulin Aspart 11 unit 06/07/21 17:30 06/08/21 07:55 Insulin Aspart (Novolog) 100 Unit/Ml Vial 0.13 unit/kg (11 unit) Not Given SQ AC-TID [facility] Naloxone HCl 0.2 mg 06/07/21 13:38 Naloxone 0.4 Mg/Ml 1 Ml Vial IV Q2M PRN Opioid Reversal Zinc Sulfate 220 mg 06/07/21 16:15 06/08/21 08:55 Zinc Sulfate 220 Mg Cap PO 220 mg DAILY [facility] Administration Intake and Output 12/06/08/21 06/08/21 22:59 06:59 14:59 Intake Total 67.700 8.867 20.125 Output Total 400 Balance 67.700 -391.133 20.125 Intake: Intake, IV Titration 67.700 8.867 20.125 Amount Insulin Regular 100 unit 67.700 8.867 20.125 In Sodium Chloride 0.9% 100 ml @ Titrate IV .Q0M [facility] Rx#:[id number] Output: Urine 400 Other: # Voids 1 Weight 81.647 kg 71.5 kg 06/08/21 05:27 06/08/21 05:27 Assessment and Plan Assessment: #1 symptoms of chest pain, atypical, acute coronary event has been ruled out, troponin negative, no ischemic changes noted on EKG and echocardiogram showed normal LV systolic function with no segmental wall motion abnormalities #2 COVID-19 pneumonia #3 dyslipidemia #4 diabetes mellitus Plan: From cardiology's perspective and acute coronary event has been ruled out. Pain is atypical and likely related to underlying COVID-19 pneumonia. No further cardiac workup is warranted at this time. We will plan to see the patient in the office in about 3-4 weeks post discharge to reevaluate her symptoms and likely schedule for stress testing as an outpatient. At this time we will see the patient on an as-needed basis. Please do not hesitate to contact us with questions. 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 Patient was seen and examined.
[2021-06-08] MEDS ORDERED: REMDESIVIR 200 MG in SODIUM CHLORIDE 0.9% 250 ML IVPB ONE (10:00)
--- NOTE | 2021-06-08 11:10 | P.CNPUL ---
History of Present Illness Consult date: 06/08/21 Requesting physician: Kandis Miller Reason for consult: dyspnea, cough, hypoxemia, pneumonia, abnormal CXR/CT Chief complaint: Shortness of breath. History of present illness: Pulmonary consult dated 06/08/2021. This is a 61-year-old female, who doesn't speak any Upper Sorbian. A family member is at the bedside, provides interpretation. This is a 61-year-old female with diabetes and hyperlipidemia. The patient apparently has not been feeling well for about 4 days. Her symptoms included chest burning, low saturations, fever, shortness breath, and weakness. Currently, she is on 2 L nasal cannula. She's getting saline at 75 mL an hour. She is getting insulin 2 units an hour. The patient is not vaccinated. She presented to the emergency room yesterday, with these complaints. She did receive the monoclonal antibody infusion. White count 12.4, hemoglobin, hematocrit, and platelet count are all normal. Sodium 136, potassium 4.7, chlorides 105, CO2 25, anion gap 6, BUN 25, and creatinine 0.53. The patient's chest x-ray show some very minimal bilateral infiltrates, see much more prominently on computed tomography scan. The patient is currently on vitamin C, vitamin D3, zinc, Decadron, and Lovenox. The patient is also receiving REM. Review of Systems REVIEW OF SYSTEMS: CONSTITUTIONAL: Weakness, and fatigue. Fever. NEUROLOGIC: [ Negative.] HEENT: [ Negative.] CARDIAC: [Negative.] PULMONARY: Burning in chest, shortness of breath, low saturations. GI: [Negative.] : [Negative.] RHEUMATOLOGIC: [ Negative.] IMMUNOLOGIC: [ Negative.] ENDOCRINE: [Negative. ] DERMATOLOGIC: [Negative.] Past Medical History Past Medical History: Diabetes Mellitus, Hyperlipidemia History of Any Multi-Drug Resistant Organisms: None Reported Past Surgical History: Tubal Ligation Past Anesthesia/Blood Transfusion Reactions: No Reported Reaction Past Psychological History: No Psychological Hx Reported Smoking Status: Never smoker Past Alcohol Use History: None Reported Past Drug Use History: None Reported Medications and Allergies Home Medications Medication Instructions Recorded Confirmed Type metFORMIN HCL 500 mg PO DAILY 06/07/21 06/07/21 History Allergies Allergy/AdvReac Type Severity Reaction Status Date / Time No Known Allergies Allergy Verified 06/07/21 14:07 Physical Exam Osteopathic Statement: *. No significant issues noted on an osteopathic structural exam other than those noted in the History and Physical/Consult. Vitals: Vital Signs Temp Pulse Pulse Resp BP BP Pulse Ox 06/08/21 08:00 97.6 F 75 18 114/69 94 L 06/08/21 04:00 98.9 F 74 18 108/62 96 06/08/21 02:00 96 18 06/08/21 00:00 99.0 F 96 18 116/59 92 L 06/07/21 20:00 98.4 F 104 H 18 119/69 92 L 06/07/21 18:16 97.9 F 101 H 18 117/65 92 L 06/07/21 17:37 98.9 F 78 20 100/73 94 L 06/07/21 15:36 98 F 99 16 108/72 95 06/07/21 13:50 105 H 19 118/62 90 L 06/07/21 12:47 18 06/07/21 12:44 102 H 24 124/69 93 L 06/07/21 11:24 99.0 F 113 H 19 126/78 86 L Intake and Output 06/07/21 06/08/21 06/08/21 22:59 06:59 14:59 Intake Total 67.700 8.867 310.125 Output Total 400 Balance 67.700 -391.133 310.125 Intake: IV 30 Invasive Line 1 20 Invasive Line 2 10 Intake, IV Titration 67.700 8.867 20.125 Amount Insulin Regular 100 unit 67.700 8.867 20.125 In Sodium Chloride 0.9% 100 ml @ Titrate IV .Q0M [facility] Rx#:[id number] Oral 260 Output: Urine 400 Other: # Voids 1 Weight 81.647 kg 71.5 kg No acute distress, oriented 3. Currently on 2 L. No evidence of conversational dyspnea or use of accessory muscles. HEENT examination is grossly unremarkable. Neck supple. Full range of motion. No adenopathy thyromegaly or neck vein distention. Cardiovascular examination reveals regular rhythm rate. S1-S2 normal. No S3 or S4. No discernible murmur noted. Heart sounds are distant. Heart rate 75 bpm. Lungs reveal scattered bilateral rhonchi. No wheezes or crackles. Breath sounds equal bilaterally. Abdomen soft bowel sounds are heard. No masses or tenderness. Extremities are intact. No cyanosis clubbing or edema. Skin is without rash or lesion. Neurologic examination is brief but nonfocal. Results - Laboratory Findings CBC and BMP: 06/08/21 05:27 06/08/21 05:27 PT/INR, D-dimer PT 10.9 sec (9.0-12.0) 06/07/21 12:08 INR 1.0 (<1.2) 06/07/21 12:08 D-Dimer 0.42 mg/L FEU (<0.60) 06/07/21 12:08 Abnormal lab findings: Abnormal Labs 06/07/21 06/07/21 06/07/21 12:06 12:08 12:08 WBC 16.4 H RBC 5.82 H Hgb 16.8 H Hct 51.7 H Neutrophils # 14.5 H APTT 19.7 L Sodium Carbon Dioxide BUN Glucose POC Glucose (mg/dL) Calcium C-Reactive Protein 2.5 H Albumin Urine Protein Urine Glucose (UA) Urine Ketones Ur Leukocyte Esterase Urine WBC Ur Squamous Epith Cells Coronavirus (PCR) 06/07/21 06/07/21 06/07/21 12:08 12:08 18:34 WBC RBC Hgb Hct Neutrophils # APTT Sodium 134 L Carbon Dioxide 13 L BUN 32 H Glucose 359 H POC Glucose (mg/dL) 438 H Calcium 10.3 H C-Reactive Protein Albumin Urine Protein Urine Glucose (UA) Urine Ketones Ur Leukocyte Esterase Urine WBC Ur Squamous Epith Cells Coronavirus (PCR) Detected A 06/07/21 06/07/21 06/07/21 20:35 21:09 22:03 WBC RBC Hgb Hct Neutrophils # APTT Sodium Carbon Dioxide BUN Glucose POC Glucose (mg/dL) 402 H 326 H 262 H Calcium C-Reactive Protein Albumin Urine Protein Urine Glucose (UA) Urine Ketones Ur Leukocyte Esterase Urine WBC Ur Squamous Epith Cells Coronavirus (PCR) 06/07/21 06/08/21 06/08/21 22:37 00:37 02:44 WBC RBC Hgb Hct Neutrophils # APTT Sodium Carbon Dioxide BUN Glucose POC Glucose (mg/dL) 217 H 175 H Calcium C-Reactive Protein Albumin Urine Protein Trace H Urine Glucose (UA) 4+ H Urine Ketones 4+ H Ur Leukocyte Esterase Trace H Urine WBC 7 H Ur Squamous Epith Cells 5 H Coronavirus (PCR) 06/08/21 06/08/21 06/08/21 02:49 04:49 05:27 WBC 12.4 H RBC Hgb Hct Neutrophils # 10.7 H APTT Sodium Carbon Dioxide BUN Glucose POC Glucose (mg/dL) 167 H 167 H Calcium C-Reactive Protein Albumin Urine Protein Urine Glucose (UA) Urine Ketones Ur Leukocyte Esterase Urine WBC Ur Squamous Epith Cells Coronavirus (PCR) 06/08/21 06/08/21 06/08/21 05:27 06:32 08:34 WBC RBC Hgb Hct Neutrophils # APTT Sodium 136 L Carbon Dioxide BUN 25 H Glucose 170 H POC Glucose (mg/dL) 157 H 142 H Calcium C-Reactive Protein Albumin 3.1 L Urine Protein Urine Glucose (UA) Urine Ketones Ur Leukocyte Esterase Urine WBC Ur Squamous Epith Cells Coronavirus (PCR) - Diagnostic Findings Chest x-ray: image reviewed CT scan - chest: image reviewed Assessment and Plan Assessment: Acute hypoxemic respiratory failure secondary to coronavirus associated pneumonia. History of diabetes mellitus. History of hyperlipidemia. Plan: Plan dated 06/08/2021. The patient is currently on vitamin C, vitamin D3, and zinc. The patient is also appropriately receiving Decadron, and Lovenox. Finally, because her symptoms have been less than 7 days, and because her oxygen requirements are less than 6 L/m, she is a candidate for REM. Additional recommendations and suggestions are forthcoming. We will continue to follow make recommendations where appropriate. Prognosis is guarded. Time with Patient: Greater than 30
[2021-06-08 11:35] LABS: Glucose,Whole Blood 314 mg/dL (75-99)
[2021-06-08 13:39] LABS: Glucose,Whole Blood 269 mg/dL (75-99)
[2021-06-08 15:43] LABS: Glucose,Whole Blood 232 mg/dL (75-99)
[2021-06-08 17:32] LABS: Glucose,Whole Blood 253 mg/dL (75-99)
[2021-06-08 19:16] LABS: Glucose,Whole Blood 298 mg/dL (75-99)
--- NOTE | 2021-06-08 20:31 | PN ---
PROGRESS NOTE DATE OF SERVICE: 06/08/2021 This 61-year-old woman who was admitted with acute COVID-19 infection also had some chest pains. The blood sugar is slightly elevated. Patient also had possibly evidence of diabetic ketosis, present on admission. COVID-19 was positive. The patient is also on multiple medications. Infectious Disease, Pulmonary and Cardiology are following the patient also. Past medical history reviewed. REVIEW OF SYSTEMS: CARDIOVASCULAR SYSTEM: As mentioned earlier. RESPIRATION: As mentioned earlier. GI: As mentioned earlier. : No dysuria. NERVOUS SYSTEM: No numbness, weakness. CURRENT MEDICATIONS: Tylenol, vitamin C, vitamin D3, Decadron, Lovenox. Doses and other medications are reviewed. PHYSICAL EXAMINATION: Patient alert and oriented x3. Pulse 78, blood pressure 118/68, respiration 18, temperature 97.6, pulse ox 97% on 2 L. HEENT: Conjunctivae normal. NECK: No jugular venous distention. CARDIOVASCULAR: S1, S2 muffled. RESPIRATION: Breath sounds diminished at the bases. A few scattered rhonchi and crackles. ABDOMEN: Soft, nontender. LEGS: No edema. No swelling. NERVOUS SYSTEM: No focal deficit. LABS: WBC 12.2, hemoglobin 14.6, and glucose 157. ASSESSMENT: 1. Acute COVID-19 infection with acute early bilateral interstitial pneumonia with acute hypoxic respiratory failure. 2. Chest pain. Myocardial infarction ruled out. Possibly secondary to COVID-19. 3. Increased white count. 4. Diabetes mellitus, type 2, uncontrolled with hyperglycemia. 5. Acute diabetic ketoacidosis, present on admission. 6. Increased hemoglobin. 7. Hyponatremia. 8. Hyperlipidemia. 9. History of tubal ligation. 10.Obesity with body mass index 31.9. 11.FULL CODE. RECOMMENDATIONS AND DISCUSSION: I recommend to continue current medications, continue with the monitoring, symptomatic treatment. The patient has been started on remdesivir. I would also recommend continuing with IV insulin drip and monitor blood sugars closely. Patient is on IV steroids. Repeat labs in the morning. Continue with Lovenox. Continue the rest of the medications. Closely follow with multiple consultants. Chest CT scan was reviewed personally by me. It showed significant bilateral interstitial infiltrates. The prognosis is guarded. Further recommendations to follow. MMODL / IJN: [id number] /
[2021-06-08 21:41] LABS: Glucose,Whole Blood 187 mg/dL (75-99)
[2021-06-08 23:32] LABS: Glucose,Whole Blood 165 mg/dL (75-99)
[2021-06-09 01:30] LABS: Glucose,Whole Blood 151 mg/dL (75-99)
--- NOTE | 2021-06-09 01:31 | PN ---
PROGRESS NOTE DATE OF SERVICE: 06/08/2021 REASON FOR FOLLOW UP: COVID-19 pneumonia. INTERVAL HISTORY: The patient is afebrile. The patient is breathing more comfortably today. The patient denies having any chest pain. Cough intensity is about the same. Cough is dry. No vomiting. No abdominal pain or any worsening diarrhea. PHYSICAL EXAMINATION: Blood pressure 124/72 with a pulse of 90, temperature 98.7. She is 94% on 2 L nasal cannula. General description is a middle-aged female up in the bed in no distress. Respiratory system: Unlabored breathing, coarse breath sounds bilaterally, no wheeze. Heart S1, S2. Regular rate and rhythm. Abdomen soft, no tenderness. LABS: Reviewed. DIAGNOSTIC IMPRESSION AND PLAN: Patient with acute respiratory failure secondary to COVID-19 pneumonia and this patient did have clinical improvement with current treatment protocol of Remdesivir, dexamethasone, Lovenox, zinc and ascorbic acid along with respiratory support and monitor clinical course closely. MMODL / IJN: [id number] /
[2021-06-09 03:20] LABS: Glucose,Whole Blood 138 mg/dL (75-99)
[2021-06-09 05:18] LABS: Glucose,Whole Blood 124 mg/dL (75-99)
[2021-06-09 06:08] LABS: Glucose,Whole Blood 161 mg/dL (75-99)
[2021-06-09] MEDS: REMDESIVIR 100 MG in SODIUM CHLORIDE 0.9% 250 ML IVPB SCH (08:15)
[2021-06-09] MEDS: SODIUM CHLORIDE 0.9% 1,000 ML IV SCH ×2 (08:15→17:41)
[2021-06-09] MEDS: CHOLECALCIFEROL 25 MCG (1000 IU) TABLET PO SCH (08:16)
[2021-06-09] MEDS: DEXAMETHASONE SOD PHOSPHATE 10 MG/ML 1 ML VIAL IV SCH (08:16)
[2021-06-09] MEDS: ENOXAPARIN 40 MG/0.4 ML SYRINGE SQ SCH (08:16)
[2021-06-09] MEDS: ZINC SULFATE 220 MG CAP PO SCH (08:16)
[2021-06-09] MEDS: INSULIN ASPART (NovoLOG) 100 UNIT/ML VIAL SQ SCH ×3 (08:16→17:44)
[2021-06-09] MEDS: ASCORBIC ACID 500 MG TAB PO SCH (08:16)
[2021-06-09 08:22] LABS: Glucose,Whole Blood 139 mg/dL (75-99)
[2021-06-09] MEDS: INSULIN REGULAR 100 UNIT in SODIUM CHLORIDE 0.9% 100 ML IV SCH (08:23)
[2021-06-09 10:12] LABS: Glucose,Whole Blood 254 mg/dL (75-99)
[2021-06-09 12:06] LABS: Glucose,Whole Blood 220 mg/dL (75-99)
[2021-06-09 14:05] LABS: Glucose,Whole Blood 311 mg/dL (75-99)
--- NOTE | 2021-06-09 14:28 | P.PN ---
Subjective Progress Note Date: 06/09/21 Principal diagnosis: Respiratory failure. Pulmonary consult dated 06/08/2021. This is a 61-year-old female, who doesn't speak any Cymro. A family member is at the bedside, provides interpretation. This is a 61-year-old female with diabetes and hyperlipidemia. The patient apparently has not been feeling well for about 4 days. Her symptoms included chest burning, low saturations, fever, shortness breath, and weakness. Currently, she is on 2 L nasal cannula. She's getting saline at 75 mL an hour. She is getting insulin 2 units an hour. The patient is not vaccinated. She presented to the emergency room yesterday, with these complaints. She did receive the monoclonal antibody infusion. White count 12.4, hemoglobin, hematocrit, and platelet count are all normal. Sodium 136, potassium 4.7, chlorides 105, CO2 25, anion gap 6, BUN 25, and creatinine 0.53. The patient's chest x-ray show some very minimal bilateral infiltrates, see much more prominently on computed tomography scan. The patient is currently on vitamin C, vitamin D3, zinc, Decadron, and Lovenox. The patient is also receiving REM. Progress note dated 06/09/2021. 61-year-old female seen yesterday in consultation. She was admitted with a diagnosis of coronavirus associated pneumonia. The patient is not vaccinated. Currently, she is getting saline at 75 mL an hour. She's getting O2 at 2 L/m. In addition, the patient's getting insulin at 3.5 units an hour. She is on day #2 of REM. She does not speak Cymro. She looks pretty comfortable. She also has a history of diabetes and hyperlipidemia. Her , is also a patient at this hospital. No new laboratory data today to report. Objective - Vital Signs Vital signs: Vital Signs Temp 98.6 F 06/09/21 12:00 Pulse 89 06/09/21 12:00 Resp 18 06/09/21 12:00 BP 107/61 06/09/21 12:00 Pulse Ox 91 L 06/09/21 12:00 Intake & Output 06/08/21 06/09/21 06/09/21 18:59 06:59 18:59 Intake Total 2397.825 909.850 557.043 Output Total 900 Balance 2397.825 9.850 557.043 Intake: IV 1210 750 40 Invasive Line 1 40 20 Invasive Line 2 20 Invasive Line 4 20 Remdesivir 100 mg In 250 Sodium Chloride 0.9% 250 ml @ 250 mls/hr IVPB DAILY@1000 [facility] Rx#: [id number] Sodium Chloride 0.9% 1, 900 750 000 ml @ 75 mls/hr IV . [id number] [facility] Rx#:[id number] Intake, IV Titration 67.825 39.850 17.043 Amount Insulin Regular 100 unit 67.825 39.850 17.043 In Sodium Chloride 0.9% 100 ml @ Titrate IV .Q0M [facility] Rx#:[id number] Oral 1120 120 500 Output: Urine 900 - Exam No acute distress, oriented 3. Currently on 3 L. No evidence of conversation al dyspnea or use of accessory muscles. Saturations are 91%. HEENT examination is grossly unremarkable. Neck supple. Full range of motion. No adenopathy thyromegaly or neck vein distention. Cardiovascular examination reveals regular rhythm rate. S1-S2 normal. No S3 or S4. No discernible murmur noted. Heart sounds are distant. Heart rate 89 bpm. Lungs reveal scattered bilateral rhonchi. No wheezes or crackles. Breath sounds equal bilaterally. Abdomen soft bowel sounds are heard. No masses or tenderness. Extremities are intact. No cyanosis clubbing or edema. Skin is without rash or lesion. Neurologic examination is brief but nonfocal. - Labs CBC & Chem 7: 06/08/21 05:27 06/08/21 05:27 Labs: Abnormal Lab Results - Last 24 Hours (Table) 06/08/21 06/08/21 06/08/21 Range/Units 15:32 17:32 19:12 POC Glucose (mg/dL) 232 H 253 H 298 H (75-99) mg/dL 06/08/21 06/08/21 06/09/21 Range/Units 21:38 23:25 01:29 POC Glucose (mg/dL) 187 H 165 H 151 H (75-99) mg/dL 06/09/21 06/09/21 06/09/21 Range/Units 03:13 05:13 06:07 POC Glucose (mg/dL) 138 H 124 H 161 H (75-99) mg/dL 1206/09/21 06/09/21 Range/Units 08:11 10:01 11:58 POC Glucose (mg/dL) 139 H 254 H 220 H (75-99) mg/dL 06/09/21 Range/Units 14:04 POC Glucose (mg/dL) 311 H (75-99) mg/dL Assessment and Plan Assessment: Acute hypoxemic respiratory failure secondary to coronavirus associated pneumo mango. History of diabetes mellitus. History of hyperlipidemia. Plan: Plan dated 06/08/2021. The patient is currently on vitamin C, vitamin D3, and zinc. The patient is also appropriately receiving Decadron, and Lovenox. Finally, because her symptoms have been less than 7 days, and because her oxygen requirements are less than 6 L/m, she is a candidate for REM. Additional recommendations and suggestions are forthcoming. We will continue to follow make recommendations where appropriate. Prognosis is guarded. Plan dated 06/09/2021. The patient's getting vitamin C, vitamin D3, and zinc. In addition, the patient's getting Lovenox, and Decadron at usual doses. The patient is day #2 of REM. The patient appears to be doing relatively well. She does not appear to be in any distress. She is also on insulin drip at 3.5 units an hour. We will continue to follow make recommendations were appropriate. Overall prognosis is guarded. Time with Patient: Less than 30
[2021-06-09 16:06] LABS: Glucose,Whole Blood 217 mg/dL (75-99)
[2021-06-09 17:45] LABS: Glucose,Whole Blood 150 mg/dL (75-99)
--- NOTE | 2021-06-09 18:46 | PN ---
PROGRESS NOTE DATE OF SERVICE: 06/09/2021. This 61-year-old woman who was admitted with acute COVID-19 infection as well as acute COVID-19 interstitial pneumonia is being closely monitored. No chest pain. No palpitations. No fever. The patient also had uncontrolled diabetes mellitus. Patient was started on remdesivir. No chest pain. No palpitations. No fever. PHYSICAL EXAMINATION: Alert. Pulse 89, blood pressure 107/61, respiration 18, temperature 98.6, pulse ox 91% on 3 L. HEENT: Conjunctivae normal. NECK: No jugular venous distention. CARDIOVASCULAR: S1, S2 muffled. RESPIRATION: Breath sounds diminished at the bases. A few scattered rhonchi. ABDOMEN: Soft. NERVOUS SYSTEM: No focal deficit. LAB STUDIES: WBC 12.2, sodium 136. ASSESSMENT: 1. Acute COVID-19 infection with acute bilateral interstitial pneumonia with acute hypoxic respiratory failure. 2. Chest pain. Myocardial infarction ruled out. Possibly secondary to COVID-19. Rule out coronary artery disease. 3. Increased white count. 4. Diabetes mellitus, type 2, uncontrolled with hyperglycemia. 5. Acute diabetic ketoacidosis, present on admission. 6. Increased hemoglobin. 7. Hyponatremia. 8. Hyperlipidemia. 9. History of tubal ligation. 10.Obesity with body mass index of 31.9. 11.FULL CODE. RECOMMENDATIONS AND DISCUSSION: I recommend to continue current medications, continue with the monitoring, symptomatic treatment. Otherwise at this time I would recommend repeat labs. Continue with insulin drip. Monitor blood sugars closely. Guarded prognosis. Further recommendations to follow. MMODL / IJN: [id number] /
[2021-06-09 19:50] LABS: Glucose,Whole Blood 202 mg/dL (75-99)
[2021-06-09 22:16] LABS: Glucose,Whole Blood 146 mg/dL (75-99)
--- NOTE | 2021-06-09 23:17 | PN ---
PROGRESS NOTE DATE OF SERVICE: 06/09/2021 REASON FOR FOLLOWUP: COVID-19 pneumonia. INTERVAL HISTORY: The patient is afebrile. The patient has been breathing slightly comfortably. Denies any chest pain. Some shortness of breath on exertion. Continues to have a cough, not bringing any sputum now. No abdominal pain or diarrhea. PHYSICAL EXAMINATION: Blood pressure 118/69 with a pulse of 84, temperature 98.2 , she is 93 percent on 2 L nasal cannula. General description is a middle-aged female up in the bed in no distress. Respiratory is system: Unlabored breathing, coarse breath sounds in the base bilaterally. No wheeze. Heart S1, S2. Regular rate. Abdomen soft, no tenderness. LABS: No new labs have been obtained today. DIAGNOSTIC IMPRESSION AND PLAN: Patient with acute COVID-19 pneumonia in this patient who did have minimal clinical improvement. Patient to continue with Remdesivir, dexamethasone, Lovenox, zinc and ascorbic acid along with respiratory support and monitor clinical course closely. MMODL / IJN: [id number] /
[2021-06-10 00:27] LABS: Glucose,Whole Blood 137 mg/dL (75-99)
[2021-06-10 02:30] LABS: Glucose,Whole Blood 124 mg/dL (75-99)
[2021-06-10 03:30] LABS: Glucose,Whole Blood 130 mg/dL (75-99)
[2021-06-10 05:31] LABS: Glucose,Whole Blood 158 mg/dL (75-99)
[2021-06-10 07:20] LABS: Glucose,Whole Blood 117 mg/dL (75-99)
[2021-06-10 08:15] LABS: Basophils % (A) 0 %; Eosinophils % (A) 0 %; HCT 42.7 % (34.0-46.0); HGB 13.8 gm/dL (11.4-16.0); Lymphocytes # (A) 2.2 k/uL (1.0-4.8); Lymphocytes % (A) 19 %; MCH 28.7 pg (25.0-35.0); MCHC 32.2 g/dL (31.0-37.0); MCV 89.1 fL (80.0-100.0); Mean Platelet Volume 7.9; Monocytes # (A) 0.6 k/uL (0-1.0); Monocytes % (A) 5 %; Neutrophils # (A) 8.5 k/uL (1.3-7.7); Neutrophils % (A) 74 %; Platelet Count 351 k/uL (150-450); RDW 13.1 % (11.5-15.5); WBC 11.4 k/uL (3.8-10.6)
[2021-06-10 08:23] LABS: African American GFR (CKD) >90 (>60 ml/min/1.73 sqM); Anion Gap 6 mmol/L; Blood Urea Nitrogen 17 mg/dL (7-17); Calcium 8.8 mg/dL (8.4-10.2); Carbon Dioxide 26 mmol/L (22-30); Chloride 108 mmol/L (98-107); Glucose 143 mg/dL (74-99); Non-African American GFR(CKD) >90 (>60 ml/min/1.73 sqM); Sodium 140 mmol/L (137-145)
[2021-06-10 08:31] LABS: Glucose,Whole Blood 172 mg/dL (75-99)
[2021-06-10] MEDS: ASCORBIC ACID 500 MG TAB PO SCH (08:34)
[2021-06-10] MEDS: CHOLECALCIFEROL 25 MCG (1000 IU) TABLET PO SCH (08:34)
[2021-06-10] MEDS: ZINC SULFATE 220 MG CAP PO SCH (08:34)
[2021-06-10] MEDS: REMDESIVIR 100 MG in SODIUM CHLORIDE 0.9% 250 ML IVPB SCH (08:34)
[2021-06-10] MEDS: ENOXAPARIN 40 MG/0.4 ML SYRINGE SQ SCH (08:34)
[2021-06-10] MEDS: INSULIN ASPART (NovoLOG) 100 UNIT/ML VIAL SQ SCH ×3 (08:35→17:29)
[2021-06-10] MEDS: SODIUM CHLORIDE 0.9% 1,000 ML IV SCH ×2 (08:35→21:47)
[2021-06-10] MEDS: DEXAMETHASONE SOD PHOSPHATE 10 MG/ML 1 ML VIAL IV SCH (08:35)
[2021-06-10 08:37] LABS: Potassium 3.5 mmol/L (3.5-5.1)
[2021-06-10 10:31] LABS: Glucose,Whole Blood 224 mg/dL (75-99)
[2021-06-10 12:36] LABS: Glucose,Whole Blood 206 mg/dL (75-99)
--- NOTE | 2021-06-10 14:19 | P.PN ---
Subjective Progress Note Date: 06/10/21 Principal diagnosis: Respiratory failure. Pulmonary consult dated 06/08/2021. This is a 61-year-old female, who doesn't speak any Palestinian. A family member is at the bedside, provides interpretation. This is a 61-year-old female with diabetes and hyperlipidemia. The patient apparently has not been feeling well for about 4 days. Her symptoms included chest burning, low saturations, fever, shortness breath, and weakness. Currently, she is on 2 L nasal cannula. She's getting saline at 75 mL an hour. She is getting insulin 2 units an hour. The patient is not vaccinated. She presented to the emergency room yesterday, with these complaints. She did receive the monoclonal antibody infusion. White count 12.4, hemoglobin, hematocrit, and platelet count are all normal. Sodium 136, potassium 4.7, chlorides 105, CO2 25, anion gap 6, BUN 25, and creatinine 0.53. The patient's chest x-ray show some very minimal bilateral infiltrates, see much more prominently on computed tomography scan. The patient is currently on vitamin C, vitamin D3, zinc, Decadron, and Lovenox. The patient is also receiving REM. Progress note dated 06/09/2021. 61-year-old female seen yesterday in consultation. She was admitted with a diagnosis of coronavirus associated pneumonia. The patient is not vaccinated. Currently, she is getting saline at 75 mL an hour. She's getting O2 at 2 L/m. In addition, the patient's getting insulin at 3.5 units an hour. She is on day #2 of REM. She does not speak Palestinian. She looks pretty comfortable. She also has a history of diabetes and hyperlipidemia. Her , is also a patient at this hospital. No new laboratory data today to report. Progress note dated 06/10/2021. 61-year-old female seen again in room 350. Patient is getting saline at 75 mL an hour, nasal oxygen at 3 L/m, and an insulin drip at 3.5 units an hour. Her white count 11.4, hemoglobin 13.8, hematocrit 42.7, sodium 140, potassium 3.5, chlorides 108, CO2 26, BUN 17, and creatinine 0.54. The patient does not have any complaints at this time. She does not speak Palestinian. She was admitted with a diagnosis of coronavirus associated pneumonia. The patient is not vaccinated. She is on day # 3 of . Objective - Vital Signs Vital signs: Vital Signs Temp 98.2 F 06/10/21 04:00 Pulse 91 06/10/21 07:38 Resp 16 06/10/21 07:39 BP 86/48 06/10/21 07:38 Pulse Ox 88 L 06/10/21 07:38 Intake & Output 06/09/21 06/10/21 06/10/21 18:59 06:59 18:59 Intake Total 1848.568 256.958 535.958 Balance 1848.568 256.958 535.958 Weight 73 kg Intake: IV 1190 20 Invasive Line 1 20 Invasive Line 4 20 Invasive Line 5 20 Remdesivir 100 mg In 250 Sodium Chloride 0.9% 250 ml @ 250 mls/hr IVPB DAILY@1000 [facility] Rx#: [id number] Sodium Chloride 0.9% 1, 900 000 ml @ 75 mls/hr IV . [id number] [facility] Rx#:[id number] Intake, IV Titration 40.568 16.958 15.958 Amount Insulin Regular 100 unit 40.568 16.958 15.958 In Sodium Chloride 0.9% 100 ml @ Titrate IV .Q0M [facility] Rx#:[id number] Oral 618 240 500 Other: # Voids 3 1 - Exam No acute distress, oriented 3. Currently on 3 L. No evidence of conversational dyspnea or use of accessory muscles. Saturations are 91%. Saturations 88% on 2 L. HEENT examination is grossly unremarkable. Neck supple. Full range of motion. No adenopathy thyromegaly or neck vein distention. Cardiovascular examination reveals regular rhythm rate. S1-S2 normal. No S3 or S4. No discernible murmur noted. Heart sounds are distant. Heart rate 91 bpm. Lungs reveal scattered bilateral rhonchi. No wheezes or crackles. Breath sounds equal bilaterally. Abdomen soft bowel sounds are heard. No masses or tenderness. Extremities are intact. No cyanosis clubbing or edema. Skin is without rash or lesion. Neurologic examination is brief but nonfocal. - Labs CBC & Chem 7: 06/10/21 06:51 06/10/21 06:51 Labs: Abnormal Lab Results - Last 24 Hours (Table) 06/09/21 06/09/21 06/09/21 Range/Units 16:06 17:43 19:48 WBC (3.8-10.6) k/uL Neutrophils # (1.3-7.7) k/uL Chloride (98-107) mmol/L Glucose (74-99) mg/dL POC Glucose (mg/dL) 217 H 150 H 202 H (75-99) mg/dL 06/09/21 06/10/21 06/10/21 Range/Units 22:14 00:23 02:28 WBC (3.8-10.6) k/uL Neutrophils # (1.3-7.7) k/uL Chloride (98-107) mmol/L Glucose (74-99) mg/dL POC Glucose (mg/dL) 146 H 137 H 124 H (75-99) mg/dL 06/10/21 06/10/21 06/10/21 Range/Units 03:27 05:30 06:51 WBC 11.4 H (3.8-10.6) k/uL Neutrophils # 8.5 H (1.3-7.7) k/uL Chloride (98-107) mmol/L Glucose (74-99) mg/dL POC Glucose (mg/dL) 130 H 158 H (75-99) mg/dL 06/10/21 06/10/21 06/10/21 Range/Units 06:51 07:18 08:29 WBC (3.8-10.6) k/uL Neutrophils # (1.3-7.7) k/uL Chloride 108 H (98-107) mmol/L Glucose 143 H (74-99) mg/dL POC Glucose (mg/dL) 117 H 172 H (75-99) mg/dL 06/10/21 06/10/21 Range/Units 10:30 12:34 WBC (3.8-10.6) k/uL Neutrophils # (1.3-7.7) k/uL Chloride (98-107) mmol/L Glucose (74-99) mg/dL POC Glucose (mg/dL) 224 H 206 H (75-99) mg/dL Assessment and Plan Assessment: Acute hypoxemic respiratory failure secondary to coronavirus associated pn [place]. History of diabetes mellitus. History of hyperlipidemia. Plan: Plan dated 06/08/2021. The patient is currently on vitamin C, vitamin D3, and zinc. The patient is also appropriately receiving Decadron, and Lovenox. Finally, because her symptoms have been less than 7 days, and because her oxygen requirements are less than 6 L/m, she is a candidate for REM. Additional recommendations and suggestions are forthcoming. We will continue to follow make recommendations where appropriate. Prognosis is guarded. Plan dated 06/09/2021. The patient's getting vitamin C, vitamin D3, and zinc. In addition, the patient's getting Lovenox, and Decadron at usual doses. The patient is day #2 of REM. The patient appears to be doing relatively well. She does not appear to be in any distress. She is also on insulin drip at 3.5 units an hour. We wi ll continue to follow make recommendations were appropriate. Overall prognosis is guarded. Plan dated 06/10/2021. The patient is currently getting vitamin C, vitamin D3, and zinc. In addition, the patient is on Lovenox and Decadron. She is also receiving REM, day #3. She is currently on 3 L nasal O2. On 2 L, her saturations were only 88%. She appears not to have any distress. She continues on the insulin drip at 3.5 units an hour. It appears that she can probably be transitioned to longer acting insulin, which we will leave up to the primary service. Her prognosis is guarded. Time with Patient: Less than 30
[2021-06-10 14:21] LABS: Glucose,Whole Blood 343 mg/dL (75-99)
[2021-06-10 16:42] LABS: Glucose,Whole Blood 227 mg/dL (75-99)
--- NOTE | 2021-06-10 17:36 | PN ---
PROGRESS NOTE DATE OF SERVICE: 06/10/2021 REASON FOR FOLLOWUP: COVID-19 pneumonia. INTERVAL HISTORY: Patient is afebrile. The patient mentioned breathing slightly comfortably. She is % on nasal cannula. Patient denies any chest pain. No worsening cough or sputum production. No abdominal pain. No diarrhea. PHYSICAL EXAMINATION: Blood pressure 100/57, pulse of 93, temperature 98.6. She is 93% on 3 L nasal cannula. General description is a middle-aged female lying in bed in no distress. Respiratory system: Unlabored breathing, decreased intensity of breath sounds. No wheeze. Heart S1, S2. Regular rate and rhythm. Abdomen: Soft. No tenderness. Extremities: No edema of the feet. Labs reviewed. DIAGNOSTIC IMPRESSION AND PLAN: Patient with acute respiratory failure secondary to Covid 19 pneumonia in this patient seems to have shown overall slow clinical improvement. Patient to continue with Remdesivir, dexamethasone, Lovenox, zinc and ascorbic acid along with respiratory support and monitor clinical course closely. MMODL / IJN: [id number] /
--- NOTE | 2021-06-10 18:24 | PN ---
PROGRESS NOTE DATE OF SERVICE: 06/10/2021 This 61-year-old woman who was admitted with acute COVID-19 infection also had chest pain. The patient also DKA. Patient has been currently on high-dose IV steroids. Patient also on insulin drip. No chest pain. No palpitations. No fever. EXAM: Alert and oriented. Pulse 92, blood pressure 120/87, respirations 16, temperature 98.2, pulse ox 92% on 3 L. HEENT: Conjunctivae normal. Oral mucosa moist. NECK: No jugular venous distention. No lymph node enlargement. CARDIOVASCULAR: S1, S2, muffled. No S3, no S4, RESPIRATORY: Diminished breath sounds at the bases. A few scattered rhonchi. ABDOMEN: Soft, nontender. LEGS: No edema, no swelling. NERVOUS SYSTEM: No focal deficits. LABS: Accu-Cheks 343 and 227. ASSESSMENT: 1. Acute COVID-19 infection with acute bilateral interstitial pneumonia with acute hypoxic respiratory failure. 2. Chest pain, myocardial infarction ruled out, possibly secondary to COVID-19, rule out coronary artery disease. 3. Increased WBC. 4. Diabetes mellitus, type 2, uncontrolled with hyperglycemia. 5. Acute diabetic ketoacidosis present on admission. 6. Increased hemoglobin. 7. Hyponatremia. 8. Hyperlipidemia. 9. History of tubal ligation. 10.Obesity with body mass index of 31.9. 11.FULL CODE. RECOMMENDATIONS AND DISCUSSION: Recommend to continue current medications, continue symptomatic treatment. I would recommend to continue IV insulin drip and continue to monitor and repeat labs in the morning. Continue the Remdesivir. The last dose will be on the . The prognosis is guarded because of multiple complex medical issues and further recommendations to follow. MMODL / IJN: [id number] /
[2021-06-10 18:57] LABS: Glucose,Whole Blood 146 mg/dL (75-99)
[2021-06-10] MEDS: INSULIN REGULAR 100 UNIT in SODIUM CHLORIDE 0.9% 100 ML IV SCH (19:01)
[2021-06-10 21:12] LABS: Glucose,Whole Blood 117 mg/dL (75-99)
[2021-06-10 23:59] LABS: Glucose,Whole Blood 115 mg/dL (75-99)
[2021-06-11 01:48] LABS: Glucose,Whole Blood 166 mg/dL (75-99)
[2021-06-11 04:27] LABS: Glucose,Whole Blood 162 mg/dL (75-99)
[2021-06-11 06:06] LABS: Basophils % (A) 0 %; Eosinophils % (A) 0 %; HCT 41.5 % (34.0-46.0); HGB 13.4 gm/dL (11.4-16.0); Lymphocytes # (A) 2.3 k/uL (1.0-4.8); Lymphocytes % (A) 23 %; MCH 28.8 pg (25.0-35.0); MCHC 32.2 g/dL (31.0-37.0); MCV 89.4 fL (80.0-100.0); Mean Platelet Volume 7.7; Monocytes # (A) 0.5 k/uL (0-1.0); Monocytes % (A) 5 %; Neutrophils # (A) 7.1 k/uL (1.3-7.7); Neutrophils % (A) 70 %; Platelet Count 376 k/uL (150-450); RBC 4.64 m/uL (3.80-5.40); RDW 13.1 % (11.5-15.5); WBC 10.1 k/uL (3.8-10.6)
[2021-06-11 06:12] LABS: Glucose,Whole Blood 130 mg/dL (75-99)
[2021-06-11 06:19] LABS: African American GFR (CKD) >90 (>60 ml/min/1.73 sqM); Anion Gap 5 mmol/L; Blood Urea Nitrogen 15 mg/dL (7-17); Calcium 8.9 mg/dL (8.4-10.2); Carbon Dioxide 26 mmol/L (22-30); Chloride 108 mmol/L (98-107); Glucose 156 mg/dL (74-99); Non-African American GFR(CKD) >90 (>60 ml/min/1.73 sqM); Potassium 3.9 mmol/L (3.5-5.1); Sodium 139 mmol/L (137-145)
[2021-06-11 08:10] LABS: Glucose,Whole Blood 179 mg/dL (75-99)
[2021-06-11] MEDS: INSULIN ASPART (NovoLOG) 100 UNIT/ML VIAL SQ SCH ×4 (08:31→20:14)
[2021-06-11] MEDS: CHOLECALCIFEROL 25 MCG (1000 IU) TABLET PO SCH (08:32)
[2021-06-11] MEDS: ZINC SULFATE 220 MG CAP PO SCH (08:32)
[2021-06-11] MEDS: ASCORBIC ACID 500 MG TAB PO SCH (08:32)
[2021-06-11] MEDS: DEXAMETHASONE SOD PHOSPHATE 10 MG/ML 1 ML VIAL IV SCH (08:32)
[2021-06-11] MEDS: ENOXAPARIN 40 MG/0.4 ML SYRINGE SQ SCH (08:32)
[2021-06-11 10:05] LABS: Glucose,Whole Blood 305 mg/dL (75-99)
[2021-06-11] MEDS: REMDESIVIR 100 MG in SODIUM CHLORIDE 0.9% 250 ML IVPB SCH (11:30)
[2021-06-11 11:43] LABS: Glucose,Whole Blood 307 mg/dL (75-99)
--- NOTE | 2021-06-11 12:59 | P.PN ---
Subjective Progress Note Date: 06/11/21 On today's evaluation of 06/11/2021, the patient is feeling better. She is feeling slightly short of breath compared to yesterday. She remains on oxygen and she is on 3 L about 2 by nasal cannula. She remains on Decadron. She is on day 3 of Remdesivir treatment regarding her COVID 19 pneumonia and she is also on Lovenox for DVT prophylaxis. She remains on insulin drip at 0.5 units an hour and the patient will be switched to long-acting insulin with Levemir. She is also taking units of NovoLog 3 times a day with meals. No new complaint otherwise for now. Her family is at the bedside. Her is also improving and he is going to be discharged home today. The white cycles of 10.4 with h emoglobin 13.4, BUN 15 with a creatinine of 0.5 and a sodium level is at home and 39. Objective - Vital Signs Vital signs: Vital Signs Temp 98 F 06/11/21 11:42 Pulse 88 06/11/21 11:42 Resp 18 06/11/21 11:42 BP 104/54 06/11/21 11:42 Pulse Ox 97 06/11/21 11:42 Intake & Output 06/10/21 06/11/21 06/11/21 18:59 06:59 18:59 Intake Total 2552.333 14.912 Balance 2552.333 14.912 Weight 73 kg 73 kg Intake: IV 1170 Invasive Line 5 20 Remdesivir 100 mg In 250 Sodium Chloride 0.9% 250 ml @ 250 mls/hr IVPB DAILY@1000 [facility] Rx#: [id number] Sodium Chloride 0.9% 1, 900 000 ml @ 75 mls/hr IV . [id number] [facility] Rx#:[id number] Intake, IV Titration 42.333 14.912 Amount Insulin Regular 100 unit 42.333 14.912 In Sodium Chloride 0.9% 100 ml @ Titrate IV .Q0M [facility] Rx#:[id number] Oral 1340 Other: # Voids 3 1 1 - Exam No acute distress, oriented 3. Currently on 3 L. No evidence of conversational dyspnea or use of accessory muscles. Saturations are 91%. Saturations 88% on 2 L. HEENT examination is grossly unremarkable. Neck supple. Full range of motion. No adenopathy thyromegaly or neck vein distention. Cardiovascular examination reveals regular rhythm rate. S1-S2 normal. No S3 or S4. No discernible murmur noted. Heart sounds are distant. Heart rate 91 bpm. Lungs reveal scattered bilateral rhonchi. No wheezes or crackles. Breath sounds equal bilaterally. Abdomen soft bowel sounds are heard. No masses or tenderness. Extremities are intact. No cyanosis clubbing or edema. Skin is without rash or lesion. Neurologic examination is brief but nonfocal. - Labs CBC & Chem 7: 06/11/21 05:11 06/11/21 05:11 Labs: Abnormal Lab Results - Last 24 Hours (Table) 06/10/21 06/10/21 06/10/21 Range/Units 14:19 16:21 18:39 Chloride (98-107) mmol/L Glucose (74-99) mg/dL POC Glucose (mg/dL) 343 H 227 H 146 H (75-99) mg/dL 06/10/21 06/10/21 06/11/21 Range/Units 21:10 23:57 01:46 Chloride (98-107) mmol/L Glucose (74-99) mg/dL POC Glucose (mg/dL) 117 H 115 H 166 H (75-99) mg/dL 06/11/21 06/11/21 06/11/21 Range/Units 04:26 05:11 06:11 Chloride 108 H (98-107) mmol/L Glucose 156 H (74-99) mg/dL POC Glucose (mg/dL) 162 H 130 H (75-99) mg/dL 06/11/21 06/11/21 06/11/21 Range/Units 08:07 10:04 11:40 Chloride (98-107) mmol/L Glucose (74-99) mg/dL POC Glucose (mg/dL) 179 H 305 H 307 H (75-99) mg/dL Assessment and Plan Plan: 1 acute hypoxic respiratory failure secondary to cord loculated pneumonia currently on 3 L of oxygen by nasal cannula maintained on a combination of Decadron and Remdesivir day #3 2 acute COVID 19 related pneumonia 3 diabetes mellitus type 2 with a component of steroid use hyperglycemia 4 hyperlipidemia Plan Continue treatment with Decadron and Remdesivir wean down FiO2 to maintain saturation above 90% continue supplements with vitamin C vitamin D and zinc started patient on Levemir insulin 14 units daily along with NovoLog 11 units with meals and a sliding scale coverage. Discontinue the insulin drip We'll continue to follow.
[2021-06-11 16:44] LABS: Glucose,Whole Blood 268 mg/dL (75-99)
--- NOTE | 2021-06-11 19:01 | P.PN ---
Subjective Progress Note Date: 06/11/21 06/11/2021 Patient evaluated sitting up at the bedside. States her breathing is improving. She is requiring 2-3 L of oxygen. She does have a mild congested cough and feels short of breath with activity. Lungs are clearing. Educated on the importance of using the IS. She is being followed closely by pulmonary and ID services. WBC improved today, 10.1, sodium 139, potassium 3.9, chloride 108, sugars in the 200s today. Vital signs today, Temp 97.7, heart rate 96, blood pressure 116/65. Dtr is at bedside translating when patient needs assistance. Patient is receiving decadron, lovenox, zinc, vitamins, and remdesivir bag 3 of 4, last dose scheduled for tomorrow. Patient transitioned off the insulin gtt today to levemir with scheduled insulin. Her was discharged today, hopefully she will be ready for discharge in the next 24 to 48 hours. ROS Constitutional: Denied any fatigue denied any fever. Cardio vascular: denied any chest pain, palpitations Gastrointestinal denied any nausea vomiting Pulmonary: Reports congested cough, reports shortness of breath with activity Neurologic denied any new focal deficits All inpatient medications were reviewed and appropriate changes in these medic ations as dictated in the interval history and assessment and plan. PHYSICAL EXAMINATION: GENERAL: The patient is alert and oriented x3, not in any acute distress. Well developed, well nourished. HEENT: Pupils are round and equally reacting to light. EOMI. No scleral icterus. No conjunctival pallor. Normocephalic, atraumatic. No pharyngeal erythema. No thyromegaly. CARDIOVASCULAR: S1 and S2 present. No murmurs, rubs, or gallops. PULMONARY: Chest is clear to auscultation, no wheezing or crackles. ABDOMEN: Soft, nontender, nondistended, normoactive bowel sounds. No palpable organomegaly. MUSCULOSKELETAL: No joint swelling or deformity. EXTREMITIES: No cyanosis, clubbing, or pedal edema. NEUROLOGICAL: Gross neurological examination did not reveal any focal deficits. SKIN: No rashes. Assessment and plan Assessment Acute hypoxic respiratory failure secondary to COVID 19 pneumonia Chest pain, most likely related to COVID 19, myocardial infarction ruled out Leukocytosis secondary to above Diabetes mellitus type 2 with hyperglycemia, exacerbated by decadron Acute DKA on admission, resolved Hyponatremia, resolved Hyperlipidemia Obesity GI Prophylaxis: Protonix DVT Prophylaxis: Lovenox Full Code Plan Continue decadron, lovenox, remdesivir, vitamins Continue with accuchecks and insulin coverage Continue with all other supportive care Wean oxygen as tolerated Possible discharge in the next 24 to 48 hours Objective - Vital Signs Vital signs: Vital Signs Temp 98.1 F 06/11/21 08:00 Pulse 94 06/11/21 08:00 Resp 18 06/11/21 08:00 BP 100/47 06/11/21 08:00 Pulse Ox 92 L 06/11/21 08:00 Intake & Output 06/10/21 06/11/21 06/11/21 18:59 06:59 18:59 Intake Total 2552.333 14.912 Balance 2552.333 14.912 Weight 73 kg 73 kg Intake: IV 1170 Invasive Line 5 20 Remdesivir 100 mg In 250 Sodium Chloride 0.9% 250 ml @ 250 mls/hr IVPB DAILY@1000 [facility] Rx#: [id number] Sodium Chloride 0.9% 1, 900 000 ml @ 75 mls/hr IV . [id number] [facility] Rx#:[id number] Intake, IV Titration 42.333 14.912 Amount Insulin Regular 100 unit 42.333 14.912 In Sodium Chloride 0.9% 100 ml @ Titrate IV .Q0M [facility] Rx#:[id number] Oral 1340 Other: # Voids 3 1 - Labs CBC & Chem 7: 06/11/21 05:11 06/11/21 05:11 Labs: Abnormal Lab Results - Last 24 Hours (Table) 06/10/21 06/10/21 06/10/21 Range/Units 10:30 12:34 14:19 Chloride (98-107) mmol/L Glucose (74-99) mg/dL POC Glucose (mg/dL) 224 H 206 H 343 H (75-99) mg/dL 06/10/21 06/10/21 06/10/21 Range/Units 16:21 18:39 21:10 Chloride (98-107) mmol/L Glucose (74-99) mg/dL POC Glucose (mg/dL) 227 H 146 H 117 H (75-99) mg/dL 06/10/21 06/11/21 06/11/21 Range/Units 23:57 01:46 04:26 Chloride (98-107) mmol/L Glucose (74-99) mg/dL POC Glucose (mg/dL) 115 H 166 H 162 H (75-99) mg/dL 06/11/21 06/11/21 06/11/21 Range/Units 05:11 06:11 08:07 Chloride 108 H (98-107) mmol/L Glucose 156 H (74-99) mg/dL POC Glucose (mg/dL) 130 H 179 H (75-99) mg/dL
[2021-06-11 20:06] LABS: Glucose,Whole Blood 270 mg/dL (75-99)
--- NOTE | 2021-06-11 22:55 | PN ---
PROGRESS NOTE DATE OF SERVICE: 06/11/2021 REASON FOR FOLLOWUP: COVID-19 pneumonia. INTERVAL HISTORY: The patient is afebrile. The patient is breathing comfortably, currently doing well off oxygen. The patient denies having any chest pain. No worsening cough or sputum production. No abdominal pain or diarrhea. PHYSICAL EXAMINATION: Blood pressure 110/60 with a pulse of 98, temperature 98.5. She is 92% on room air. General description is a middle-aged female up in the bed in no distress. Respiratory system: Unlabored breathing, decreased intensity of breath sounds. No wheeze. Heart S1, S2. Regular rate and rhythm. Abdomen soft, no tenderness. LABS: Hemoglobin is 13.4, white count 10.1, BUN of 15, creatinine 0.57. DIAGNOSTIC IMPRESSION AND PLAN: Patient with acute COVID-19 pneumonia in this patient who seems to have shown overall clinical improvement. Patient to continue with remdesivir to finish her 5-day course of therapy along with dexamethasone, Lovenox, zinc and ascorbic acid and respiratory support. Monitor clinical course closely. MMODL / IJN: [id number] /
[2021-06-12 00:44] VITALS: RESP 18
[2021-06-12 06:32] LABS: Basophils % (A) 0 %; Eosinophils # (A) 0.1 k/uL (0-0.7); Eosinophils % (A) 1 %; HCT 43.1 % (34.0-46.0); Lymphocytes # (A) 2.2 k/uL (1.0-4.8); Lymphocytes % (A) 19 %; MCH 29.2 pg (25.0-35.0); MCHC 32.6 g/dL (31.0-37.0); MCV 89.7 fL (80.0-100.0); Mean Platelet Volume 7.7; Monocytes # (A) 0.6 k/uL (0-1.0); Monocytes % (A) 6 %; Neutrophils # (A) 8.4 k/uL (1.3-7.7); Neutrophils % (A) 73 %; Platelet Count 446 k/uL (150-450); RDW 13.3 % (11.5-15.5); WBC 11.5 k/uL (3.8-10.6)
[2021-06-12 06:45] LABS: Glucose,Whole Blood 174 mg/dL (75-99)
[2021-06-12] MEDS: INSULIN ASPART (NovoLOG) 100 UNIT/ML VIAL SQ SCH ×2 (06:48)
[2021-06-12 06:55] LABS: African American GFR (CKD) >90 (>60 ml/min/1.73 sqM); Anion Gap 6 mmol/L; Blood Urea Nitrogen 14 mg/dL (7-17); Calcium 8.8 mg/dL (8.4-10.2); Carbon Dioxide 29 mmol/L (22-30); Chloride 104 mmol/L (98-107); Glucose 176 mg/dL (74-99); Non-African American GFR(CKD) >90 (>60 ml/min/1.73 sqM); Potassium 3.1 mmol/L (3.5-5.1); Sodium 139 mmol/L (137-145)
[2021-06-12] MEDS ORDERED: INSULIN DETEMIR (LEVEMIR) 100 UNIT/ML SYR SQ SCH (07:00)
[2021-06-12] MEDS ORDERED: POTASSIUM CHLORIDE ER 20 MEQ TAB.ER PO SCH (09:00)
--- NOTE | 2021-06-12 09:10 | XR ---
EXAMINATION TYPE: XR chest 1V portable DATE OF EXAM: 06/12/2021 COMPARISON: 06/07/2021 HISTORY: Shortness of breath TECHNIQUE: Single frontal view of the chest is obtained. FINDINGS: There are now areas of peripheral consolidation involving both lungs which are progressed from prior exam. Interstitial pattern stable and likely representing interstitial pneumonitis with romero perimposed consolidative pneumonia. Small bilateral effusions. Heart size stable. No pneumothorax. IMPRESSION: Worsening bilateral areas of infiltrate.
[2021-06-12] MEDS: ZINC SULFATE 220 MG CAP PO SCH (09:14)
[2021-06-12] MEDS: REMDESIVIR 100 MG in SODIUM CHLORIDE 0.9% 250 ML IVPB SCH (09:14)
[2021-06-12] MEDS: CHOLECALCIFEROL 25 MCG (1000 IU) TABLET PO SCH (09:14)
[2021-06-12] MEDS: ENOXAPARIN 40 MG/0.4 ML SYRINGE SQ SCH (09:15)
[2021-06-12] MEDS: DEXAMETHASONE SOD PHOSPHATE 10 MG/ML 1 ML VIAL IV SCH (09:15)
[2021-06-12] MEDS: ASCORBIC ACID 500 MG TAB PO SCH (09:15)
[2021-06-12 11:39] LABS: Glucose,Whole Blood 161 mg/dL (75-99)
--- NOTE | 2021-06-12 12:41 | PN ---
PROGRESS NOTE DATE OF SERVICE: 06/12/2021 REASON FOR FOLLOWUP: COVID-19 pneumonia. INTERVAL HISTORY: The patient is afebrile. The patient currently breathing comfortably on room air. The patient denies having any chest pain or worsening cough or sputum production. No abdominal pain or diarrhea. PHYSICAL EXAMINATION: Blood pressure 101/53 with a pulse of 84, temperature 98.4. She is 95% on 2 L nasal cannula. General description is a middle-aged female up in the bed in no distress. unlabored breathing. Decreased intensity of breath sounds. No wheeze. Heart S1, S2. Regular rate and rhythm. Abdomen is soft. No tenderness. LABS: Hemoglobin is 14, white count 11.5, creatinine 0.50. DIAGNOSTIC IMPRESSION AND PLAN: Patient with acute COVID-19 pneumonia in this patient who seems to have shown overall clinical improvement, even though chest x-ray shows some worsening infiltrate this morning, but clinically improving. She will finish therapy with a short course of oral dexamethasone on discharge and close outpatient followup. Multiple questions and concerns; those were answered. MMODL / IJN: [id number] /
--- NOTE | 2021-06-12 13:17 | P.PN ---
Subjective Progress Note Date: 06/12/21 On 06/12/2021, I'm seeing the patient for a follow-up. The patient is feeling better and the patient is currently on 2 L about 2 by nasal cannula. Still on Decadron. Completing her fourth day of Remdesivir. No nausea. No vomiting. No chest pain. She does have some limited scar present no significant shortness of breath. She is resting comfortably in bed. The labs from today shows a white cell count 11.5 with a hemoglobin of 14.0 and a platelet count of 4 and 46. Sodium is 139, BMs of 40 with a creatinine of 0.5 and a sugar is at 161. During the course of this hospitalization, the patient was covered with Decadron 6 mg IV every 24 hours. The patient is also on Lovenox 40 mg subcu for DVT prophylaxis. The patient on Levemir insulin 14 units along with NovoLog per sliding scale coverage. No other new complaints otherwise for now. Objective - Vital Signs Vital signs: Vital Signs Temp 98.4 F 06/12/21 08:00 Pulse 84 06/12/21 08:00 Resp 18 06/12/21 08:00 BP 101/53 06/12/21 08:00 Pulse Ox 95 06/12/21 08:00 Intake & Output 06/11/21 06/12/21 06/12/21 18:59 06:59 18:59 Intake Total 118 118 Balance 118 118 Weight 61.5 kg Intake: Oral 118 118 Other: # Voids 1 1 - Exam No acute distress, oriented 3. Currently on 3 L. No evidence of conversational dyspnea or use of accessory muscles. Saturations are 91%. Saturations 93% on 3 L of oxygen by nasal cannula HEENT examination is grossly unremarkable. Neck supple. Full range of motion. No adenopathy thyromegaly or neck vein distention. Cardiovascular examination reveals regular rhythm rate. S1-S2 normal. No S3 or S4. No discernible murmur noted. Heart sounds are distant. Heart rate 91 bpm. Lungs reveal scattered bilateral rhonchi. No wheezes or crackles. Breath sounds equal bilaterally. Abdomen soft bowel sounds are heard. No masses or tenderness. Extremities are intact. No cyanosis clubbing or edema. Skin is without rash or lesion. Neurologic examination is brief but nonfocal. - Labs CBC & Chem 7: 06/12/21 05:35 06/12/21 05:35 Labs: Abnormal Lab Results - Last 24 Hours (Table) 06/11/21 06/11/21 06/12/21 Range/Units 16:41 20:04 05:35 WBC 11.5 H (3.8-10.6) k/uL Neutrophils # 8.4 H (1.3-7.7) k/uL Potassium (3.5-5.1) mmol/L Creatinine (0.52-1.04) mg/dL Glucose (74-99) mg/dL POC Glucose (mg/dL) 268 H 270 H (75-99) mg/dL 06/12/21 06/12/21 06/12/21 Range/Units 05:35 06:44 11:23 WBC (3.8-10.6) k/uL Neutrophils # (1.3-7.7) k/uL Potassium 3.1 L (3.5-5.1) mmol/L Creatinine 0.50 L (0.52-1.04) mg/dL Glucose 176 H (74-99) mg/dL POC Glucose (mg/dL) 174 H 161 H (75-99) mg/dL Assessment and Plan Plan: 1 acute hypoxic respiratory failure secondary to cord loculated pneumonia currently on 3 L of oxygen by nasal cannula maintained on a combination of Decadron and Remdesivir day #4. The patient is doing well for now. The patient has adequate oxygenation and she may be able to go home on home O2 to maintain saturation above 90%. She is currently on a combination of Zosyn and Remdesi vir. 2 acute COVID 19 related pneumonia 3 diabetes mellitus type 2 with a component of steroid use hyperglycemia 4 hyperlipidemia Plan Continue treatment with Decadron and Remdesivir day #4 Wean off FiO2 and this can be done also on outpatient basis. The patient can potentially discharged home along with home O2. wean down FiO2 to maintain saturation above 90% continue supplements with vitamin C vitamin D and zinc Complete a total of 10 day course of Decadron Blood sugar management as an outpatient basis for medicine We'll continue to follow. Possible home today.
[2021-06-12 14:35] VITALS: BP 110/76; PULSE 81; TEMP 98.2
--- NOTE | 2021-06-12 22:02 | P.DS ---
Providers Date of admission: 06/07/21 14:12 Attending physician: Kandis Miller Consults: 06/07/21 16:02 Consult Physician Stat Consulting Provider: Jerel Bonilla Consult Reason/Comments: covid Do you want consulting provider notified?: Yes Consult Physician Stat Consulting Provider: Zack Queen Consult Reason/Comments: covid-remdesivir? Do you want consulting provider notified?: Yes 06/07/21 16:04 Consult Physician Routine Consulting Provider: Aracely Short Consult Reason/Comments: chest pains Do you want consulting provider notified?: Yes Primary care physician: Nazanin Kaur Hospital Course: Final Diagnosis Acute hypoxic respiratory failure secondary to COVID 19 pneumonia Chest pain, most likely related to COVID 19, myocardial infarction ruled out Leukocytosis secondary to above Diabetes mellitus type 2 - insulin dependent Acute DKA on admission, resolved Hyponatremia, resolved Hyperlipidemia GI Prophylaxis: Protonix DVT Prophylaxis: Lovenox Discharge Disposition Patient discharged home on 2L oxygen via nasal cannula. Cleared today by pulmonary services. Outpatient follow up with pulmonary and PCP, and repeat labs in 2 days. Hospital Course This is a pleasant 61 year old female who presented to the with complaints of cough, dyspnea, and chest pain. She was found to be COVID 19 positive via PCR, unvaccinated. Patient does not speak macedonian, she has family at the bedside who is helping to translate. Esha reports nonproductive cough at home, she denies fever, chills, n/v/d. Past medical history includes type 2 diabetes mellitus maintained on metformin, hyperlipidemia, tubal ligation. She is a never smoker. Her spouse was also hospitalized with COVID-19. Chest xray on admission shows bilateral areas of infiltrate correlate for pneumonia. Echocardiogram reveals an EF of 60-65%. Consultations placed to cardiology, ID, and pulmonary services. Labs on admission include WBC of 16.4, hgb of 16.8, D-Dimer 0.42, sodium 134, CO2 13, BUN 32, creatinine 0.70. Troponin negative, inflammatory markers; LDH of 547, CRP of 2.5. Procalcitonin level 0.4. Blood sugar on admission; 438, acetone positive, and anion gap 23. Patient was admitted with DKA and COVID 19 pneumonia. Patient was started on an insulin gtt, Decadron, lovenox, zinc, vitamin D, vitamin C, and completed a course of remdesivir therapy. Patient required 2L NC this admission. 06/12/2021 Most recent labs include WBC of 10.1, sodium 139, potassium 3.9, chloride 108, CO2 26. Blood sugar in the 150s to 170s. Vital sings include Temp of 98.2, heart rate 81, blood pressure 110/76, 94% on RA requiring oxygen for ambulation. Lungs are clearing, S1 S2 auscultated, abdomen soft non tender. Patient overall states she is feeling much better today and would like to go home. Educated on the imp ortance of vaccination after 90 days. Please see medication reconciliation for a list of current medications. Thank you for allowing us to participate in the care of this patient. Patient Condition at Discharge: Stable Plan - Discharge Summary Discharge Rx Participant: No New Discharge Prescriptions: New Dexamethasone [Decadron] See Taper PO DAILY #4 tablet Ascorbic Acid [Vitamin C] 500 mg PO DAILY tab Cholecalciferol [Vitamin D3 (25 Mcg = 1000 Iu)] 25 mcg PO DAILY tablet Potassium Chloride ER [K-Dur 20] 20 meq PO DAILY #7 tab Insulin Lispro [humaLOG Kwikpen] See Protocol SQ ACHS #3 each Zinc Sulfate [Orazinc] 220 mg PO DAILY cap Acetaminophen Tab [Tylenol] 650 mg PO Q6HR PRN tab PRN Reason: Mild Pain Or Fever > 100.5 Changed metFORMIN HCL 500 mg PO BID #60 tab Discharge Medication List Acetaminophen Tab [Tylenol] 650 mg PO Q6HR PRN tab 06/12/21 [Rx] Ascorbic Acid [Vitamin C] 500 mg PO DAILY tab 06/12/21 [Rx] Cholecalciferol [Vitamin D3 (25 Mcg = 1000 Iu)] 25 mcg PO DAILY tablet 06/12/21 [Rx] Dexamethasone [Decadron] See Taper PO DAILY #4 tablet 06/12/21 [Rx] Insulin Lispro [humaLOG Kwikpen] See Protocol SQ ACHS #3 each 06/12/21 [Rx] Potassium Chloride ER [K-Dur 20] 20 meq PO DAILY #7 tab 06/12/21 [Rx] Zinc Sulfate [Orazinc] 220 mg PO DAILY cap 06/12/21 [Rx] metFORMIN HCL 500 mg PO BID #60 tab 06/12/21 [Rx] Follow up Appointment(s)/Referral(s): Natasha Back MD [Primary Care Provider] - 06/20/21 10:10 am Alicja Garcia MD [STAFF PHYSICIAN] - 07/16/21 9:30 am Ambulatory/Diagnostic Orders: Basic Metabolic Panel [LAB.AMB] Time Frame: 2 Days, Location: None Selected Complete Blood Count w/diff [LAB.AMB] Time Frame: 2 Days, Location: None Selected Activity/Diet/Wound Care/Special Instructions: Home with Home oxygen Patient needs glucometer on discharge Discharge Disposition: HOME WITH HOME HEALTH SERVICES
== END 2021-06-12 14:21 | disposition home health service (06) | DRG 177 ==
LOC: EC 11:15 → 3SCARD 14:12
PROVIDERS: ADMIT Hospitalist; ATTEND Hospitalist
PROC: XW033F6 Introduction of Bamlanivimab Monoclonal Antibody into Peripheral Vein, Percutaneous Approach, New Technology Group 6 (ICD-10-PCS; principal; 2021-06-07)
PROC: 3E0333Z Introduction of Anti-inflammatory into Peripheral Vein, Percutaneous Approach (ICD-10-PCS; 2021-06-07)
PROC: XW033E5 Introduction of Remdesivir Anti-infective into Peripheral Vein, Percutaneous Approach, New Technology Group 5 (ICD-10-PCS; 2021-06-08)
DX: U07.1 COVID-19 (principal); J12.82 Pneumonia due to coronavirus disease 2019; E11.10 Type 2 diabetes mellitus with ketoacidosis without coma; J96.01 Acute respiratory failure with hypoxia; E87.1 Hypo-osmolality and hyponatremia; I20.9 Angina pectoris, unspecified; E66.9 Obesity, unspecified; E78.5 Hyperlipidemia, unspecified; E86.0 Dehydration; I10 Essential (primary) hypertension; Z79.84 Long term (current) use of oral hypoglycemic drugs; Z98.51 Tubal ligation status; Z68.31 Body mass index [BMI] 31.0-31.9, adult
CPT/HCPCS: 36415; 71045; 71250; 80048; 80053; 81001; 82009; 82728; 83036; 83615; 83690; 83735; 84145; 84484; 85025; 85379; 85610; 85730; 86140; 87635; 93005; 93306; 94760; 96361; 96372; 96374; 96375; 99285

== ENCOUNTER 2024-09-25 10:30 | Emergency (ER) | payer OTHER ==
--- NOTE | 2024-09-25 10:58 | ED ---
General Adult HPI - General Chief complaint: Dizziness Stated complaint: syncope Time Seen by Provider: 09/25/24 10:38 Source: patient, RN notes reviewed Mode of arrival: wheelchair Limitations: language barrier - History of Present Illness Initial comments: 64-year-old female presents emergency department chief complaint of syncope. Patient states that she had some URI cough congestion type symptoms last few days started taking some [id number] Mucinex and has had reported fevers and chills. Patient stood up quickly to go to the bathroom became very lightheaded attempted to walk and passed out she did not have any head injury she quickly gained consciousness and has no current complaints. She has any chest pain no productive cough denies any headache any focal weakness. No chest pain or shortness of breath - Related Data Previous Rx's Medication Instructions Recorded Acetaminophen Tab [Tylenol] 650 mg PO Q6HR PRN tab 06/12/21 Ascorbic Acid [Vitamin C] 500 mg PO DAILY tab 06/12/21 Cholecalciferol [Vitamin D3 (25 25 mcg PO DAILY tablet 06/12/21 Mcg = 1000 Iu)] Insulin Lispro [humaLOG Kwikpen] See Protocol SQ ACHS #3 each 06/12/21 Potassium Chloride ER [K-Dur 20] 20 meq PO DAILY #7 tab 06/12/21 Zinc Sulfate [Orazinc] 220 mg PO DAILY cap 06/12/21 dexAMETHasone [Decadron] See Taper PO DAILY #4 tablet 06/12/21 metFORMIN HCL 500 mg PO BID #60 tab 06/12/21 Allergies Allergy/AdvReac Type Severity Reaction Status Date / Time No Known Allergies Allergy Verified 09/25/24 10:37 Review of Systems ROS Statement: Those systems with pertinent positive or pertinent negative responses have been documented in the HPI. ROS Other: All systems not noted in ROS Statement are negative. Past Medical History Past Medical History: Diabetes Mellitus, Hyperlipidemia History of Any Multi-Drug Resistant Organisms: None Reported Past Surgical History: Tubal Ligation Past Anesthesia/Blood Transfusion Reactions: No Reported Reaction Past Psychological History: No Psychological Hx Reported Smoking Status: Never smoker Past Alcohol Use History: None Reported Past Drug Use History: None Reported General Exam Limitations: language barrier General appearance: alert, in no apparent distress Head exam: Present: atraumatic, normocephalic, normal inspection Eye exam: Present: normal appearance, PERRL, EOMI. Absent: scleral icterus, conjunctival injection, periorbital swelling ENT exam: Present: normal exam, mucous membranes moist Neck exam: Present: normal inspection, full ROM. Absent: tenderness, meningismus, lymphadenopathy Respiratory exam: Present: normal lung sounds bilaterally. Absent: respiratory distress, wheezes, rales, rhonchi, stridor Cardiovascular Exam: Present: regular rate, normal rhythm, normal heart sounds. Absent: systolic murmur, diastolic murmur, rubs, gallop, clicks Neurological exam: Present: alert, oriented X3, CN II-XII intact, reflexes normal. Absent: motor sensory deficit Skin exam: Present: warm, dry, intact, normal color. Absent: rash Course Vital Signs 09/25/24 09/25/24 09/25/24 10:32 10:58 11:51 Temperature 97.7 F Pulse Rate 85 77 Respiratory 16 16 Rate Blood Pressure 118/75 125/69 Blood Pressure 120/67 [Sitting] Blood Pressure 143/72 [Standing] Blood Pressure 126/72 [Supine] O2 Sat by Pulse 99 99 Oximetry EKG Findings - EKG Comments: EKG Findings:: EKG performed at 10: 46 sinus rhythm with a rate of 88 OH 133 QRS 102 QT/QTc 385/430 - EKG Results: EKG: interpreted by MARCIAL Medical Decision Making - Medical Decision Making Was pt. sent in by a medical professional or institution (RUFINA Gabriel, [employer], urgent care, hospital, or assisted...) When possible be specific @ -No Did you speak to anyone other than the patient for history (EMS, parent, family, police, friend...)? What history was obtained from this source @ -No Did you review nursing and triage notes (agree or disagree)? Why? @ -I reviewed and agree with nursing and triage notes Were old charts reviewed (outside hosp., previous admission, EMS record, old EKG, old radiological studies, urgent care reports/EKG's, assisted records)? Report findings @ -No old charts were reviewed Differential Diagnosis (chest pain, altered mental status, abdominal pain women, abdominal pain men, vaginal bleeding, weakness, fever, dyspnea, syncope, headache, dizziness, GI bleed, back pain, seizure, CVA, palpatations, mental health, musculoskeletal)? @ -Differential Syncope: Valvular disease, hypertrophic cardiomyopathy, pulmonary embolism, tamponade, tachycardia, bradycardia, [place], hypovolemia, hemorrhage, dissection, anemia, intracranial hemorrhage, seizure, hypoglycemia, carbon monoxide poisoning, this is not meant to be an all-inclusive list. EKG interpreted by me (3pts min.). @ -As above X-rays interpreted by me (1pt min.). @ -Chest x-ray shows no acute cardiopulmonary process. CT interpreted by me (1pt min.). @ -None done U/S interpreted by me (1pt. min.). @ -None done What testing was considered but not performed or refused? (CT, X-rays, U/S, labs)? Why? @ -None What meds were considered but not given or refused? Why? @ -None Did you discuss the management of the patient with other professionals (edward christianson i.e. , PA, [employer]ING [employer]SEMBLER, lab, RT, psych nurse, 7th grade social studies teacher, [employer] former, teacher, bank operations officer, oil field caser)? Give summary @ -No Was smoking cessation discussed for >3mins.? @ -No Was critical care preformed (if so, how long)? @ -No Were there social determinants of health that impacted care today? How? (Homelessness, low income, unemployed, alcoholism, drug addiction, transportation, low edu. Level, literacy, decrease access to med. care, long term, rehab)? @ -No Was there de-escalation of care discussed even if they declined (Discuss DNR or withdrawal of care, Hospice)? DNR status @ -No What co-morbidities impacted this encounter? (DM, HTN, Smoking, COPD, CAD, Cancer, CVA, ARF, Chemo, Hep., AIDS, mental health diagnosis, sleep apnea, morbid obesity)? @ -None Was patient admitted / discharged? Hospital course, mention meds given and route, prescriptions, significant lab abnormalities, going to OR and other pertinent info. @ -Discharge patient presented for some mild URI symptoms, syncopal episode. Patient had vasovagal syncopal episode is currently asymptomatic. Patient is COVID-19 positive. Patient will be discharged in stable condition return parameters discussed. Undiagnosed new problem with uncertain prognosis? @ -No Drug Therapy requiring intensive monitoring for toxicity (Heparin, Nitro, Insulin, Cardizem)? @ -No Were any procedures done? @ -No Diagnosis/symptom? @ -COVID-19, vasovagal syncope Acute, or Chronic, or Acute on Chronic? @ -Acute Uncomplicated (without systemic symptoms) or Complicated (systemic symptoms)? @ -Complicated Side effects of treatment? @ -No Exacerbation, Progression, or Severe Exacerbation? @ -No Poses a threat to life or bodily function? How? (Chest pain, [place], [place], pneumonia, PE, COPD, DKA, ARF, appy, cholecystitis, CVA, Diverticulitis, Homicidal, Suicidal, threat to staff... and all critical care pts) @ -No - Lab Data Result diagrams: 09/25/24 10:54 09/25/24 10:54 Lab Results 09/25/24 09/25/24 09/25/24 Range/Units 10:54 10:54 10:54 WBC 6.8 (3.8-10.6) k/uL RBC 4.78 (3.80-5.40) m/uL Hgb 13.5 (11.4-16.0) gm/dL Hct 41.9 (34.0-46.0) % MCV 87.6 (80.0-100.0) fL MCH 28.2 (25.0-35.0) pg MCHC 32.1 (31.0-37.0) g/dL RDW 14.7 (11.5-15.5) % Plt Count 278 (150-450) k/uL MPV 7.5 Neutrophils % 50 % Lymphocytes % 37 % Monocytes % 7 % Eosinophils % 2 % Basophils % 1 % Neutrophils # 3.4 (1.3-7.7) k/uL Lymphocytes # 2.5 (1.0-4.8) k/uL Monocytes # 0.5 (0-1.0) k/uL Eosinophils # 0.1 (0-0.7) k/uL Basophils # 0.0 (0-0.2) k/uL Hypochromasia Slight Sodium 136 L (137-145) mmol/L Potassium 3.9 (3.5-5.1) mmol/L Chloride 100 (98-107) mmol/L Carbon Dioxide 25 (22-30) mmol/L Anion Gap 11 mmol/L BUN 20 H (7-17) mg/dL Creatinine 1.07 H (0.52-1.04) mg/dL Est GFR (CKD-EPI)AfAm 65 (>60 ml/min/1.73 sqM) Est GFR (CKD-EPI)NonAf 56 (>60 ml/min/1.73 sqM) Glucose 254 H (74-99) mg/dL Calcium 9.8 (8.4-10.2) mg/dL Magnesium 1.8 (1.6-2.3) mg/dL Total Bilirubin 0.6 (0.2-1.3) mg/dL AST 20 (14-36) U/L ALT 18 (4-34) U/L Alkaline Phosphatase 79 (38-126) U/L Troponin I <0.012 (0.000-0.034) ng/mL Total Protein 8.2 (6.3-8.2) g/dL Albumin 4.3 (3.5-5.0) g/dL Influenza Type A (PCR) (Not Detectd) Influenza Type B (PCR) (Not Detectd) RSV (PCR) (Not Detectd) SARS-CoV-2 (PCR) (Not Detectd) 09/25/24 Range/Units 11:08 WBC (3.8-10.6) k/uL RBC (3.80-5.40) m/uL Hgb (11.4-16.0) gm/dL Hct (34.0-46.0) % MCV (80.0-100.0) fL MCH (25.0-35.0) pg MCHC (31.0-37.0) g/dL RDW (11.5-15.5) % Plt Count (150-450) k/uL MPV Neutrophils % % Lymphocytes % % Monocytes % % Eosinophils % % Basophils % % Neutrophils # (1.3-7.7) k/uL Lymphocytes # (1.0-4.8) k/uL Monocytes # (0-1.0) k/uL Eosinophils # (0-0.7) k/uL Basophils # (0-0.2) k/uL Hypochromasia Sodium (137-145) mmol/L Potassium (3.5-5.1) mmol/L Chloride (98-107) mmol/L Carbon Dioxide (22-30) mmol/L Anion Gap mmol/L BUN (7-17) mg/dL Creatinine (0.52-1.04) mg/dL Est GFR (CKD-EPI)AfAm (>60 ml/min/1.73 sqM) Est GFR (CKD-EPI)NonAf (>60 ml/min/1.73 sqM) Glucose (74-99) mg/dL Calcium (8.4-10.2) mg/dL Magnesium (1.6-2.3) mg/dL Total Bilirubin (0.2-1.3) mg/dL AST (14-36) U/L ALT (4-34) U/L Alkaline Phosphatase (38-126) U/L Troponin I (0.000-0.034) ng/mL Total Protein (6.3-8.2) g/dL Albumin (3.5-5.0) g/dL Influenza Type A (PCR) Not Detected (Not Detectd) Influenza Type B (PCR) Not Detected (Not Detectd) RSV (PCR) Not Detected (Not Detectd) SARS-CoV-2 (PCR) Detected A (Not Detectd) Disposition Clinical Impression: COVID-19, Vasovagal syncope Disposition: HOME SELF-CARE Condition: Stable Instructions (If sedation given, give patient instructions): Syncope (ED) Additional Instructions: Please return to the Emergency Department if symptoms worsen or any other concer ns. Is patient prescribed a controlled substance at d/c from ED?: No Referrals: None,Stated [Primary Care Provider] - 1-2 days Time of Disposition: 12:09
[2024-09-25 11:04] LABS: Basophils % (A) 1 %; Eosinophils # (A) 0.1 k/uL (0-0.7); Eosinophils % (A) 2 %; HCT 41.9 % (34.0-46.0); HGB 13.5 gm/dL (11.4-16.0); Hypochromasia Slight; Lymphocytes # (A) 2.5 k/uL (1.0-4.8); Lymphocytes % (A) 37 %; MCH 28.2 pg (25.0-35.0); MCHC 32.1 g/dL (31.0-37.0); MCV 87.6 fL (80.0-100.0); Mean Platelet Volume 7.5; Monocytes # (A) 0.5 k/uL (0-1.0); Monocytes % (A) 7 %; Neutrophils # (A) 3.4 k/uL (1.3-7.7); Neutrophils % (A) 50 %; Platelet Count 278 k/uL (150-450); RBC 4.78 m/uL (3.80-5.40); RDW 14.7 % (11.5-15.5); WBC 6.8 k/uL (3.8-10.6)
[2024-09-25] MEDS: SODIUM CHLORIDE 0.9% 1,000 ML IV STA (11:06)
[2024-09-25] MEDS: SODIUM CHLORIDE 0.9% 500 ML 500 ML IV STA (11:15)
[2024-09-25 11:29] LABS: ALT 18 U/L (4-34); AST 20 U/L (14-36); African American GFR (CKD) 65 (>60 ml/min/1.73 sqM); Albumin 4.3 g/dL (3.5-5.0); Alkaline Phosphatase 79 U/L (38-126); Anion Gap 11 mmol/L; Blood Urea Nitrogen 20 mg/dL (7-17); Calcium 9.8 mg/dL (8.4-10.2); Carbon Dioxide 25 mmol/L (22-30); Chloride 100 mmol/L (98-107); Glucose 254 mg/dL (74-99); Magnesium 1.8 mg/dL (1.6-2.3); Non-African American GFR(CKD) 56 (>60 ml/min/1.73 sqM); Potassium 3.9 mmol/L (3.5-5.1); Sodium 136 mmol/L (137-145); Total Bilirubin 0.6 mg/dL (0.2-1.3); Total Protein 8.2 g/dL (6.3-8.2)
--- NOTE | 2024-09-25 11:38 | XR ---
EXAMINATION TYPE: XR chest 2V DATE OF EXAM: 09/25/2024 11:22 AM COMPARISON: 06/12/2021 CLINICAL INDICATION: Female, 64 years old with history of syncope, TECHNIQUE: XR chest 2V view(s) obtained. FINDINGS: The heart size is normal. The pulmonary vasculature is normal. The lungs are clear. IMPRESSION: 1. No acute pulmonary process. [facility], , 09/25/2024 11:35 AM
[2024-09-25 11:49] LABS: Influenza A Not Detected (Not Detectd); Influenza B Not Detected (Not Detectd); RSV Not Detected (Not Detectd)
[2024-09-25 12:26] VITALS: BP 131/70; PULSE 73; RESP 17; TEMP 97.9
== END 2024-09-25 12:39 | disposition home or self-care (01) ==
LOC: EC 10:30
DX: U07.1 COVID-19 (principal); R55 Syncope and collapse
CPT/HCPCS: 36415; 71046; 80053; 83735; 84484; 85025; 87636; 93005; 96360; 96361; 99284